=== PATIENT | male | born 1990 | race Caucasian/White ===

== ENCOUNTER 2022-11-17 09:58 | Inpatient (IN) | payer MEDICAID ==
[~2022-11-17] VITALS: Ht 175.3 cm; Wt 178.4 kg
[2022-11-17] VITALS (8 sets, daily range): BP systolic 82–212; BP diastolic 40–118
--- NOTE | 2022-11-17 10:00 | NUR ---
BIBA TO BED 7
[2022-11-17] MEDS ORDERED: methylPREDNISolone SS 125 MG/2 ML VIAL IVP ONE (10:05)
[2022-11-17] MEDS ORDERED: NACL 0.9% 1,000 ML IV ONE (10:05)
[2022-11-17] MEDS ORDERED: ALBUTEROL SULFATE/IPRATROPIU 3 ML SOL IH ONE (10:05)
--- NOTE | 2022-11-17 10:13 | NUR ---
[facility]
[2022-11-17] MEDS ORDERED: AZITHROMYCIN 500 MG in DEXTROSE 5% 250 ML IV ONE (10:25)
--- NOTE | 2022-11-17 10:30 | NUR ---
32YO MALE PT BIBA HOME C/O INCREASED SOB XTODAY. PER [facility] , PT 92% RA ON SCENE. PT STATES INITIAL ONSET OF SOB, CONGESTION, RUNNY NOSE AND COUGH X3DAYS. C/O CHEST PAIN AND EPIGSTRIC PAIN ON COUGH. MOIST PRODUCTIVE COUGH PRESENT. RALE SOUNDS ANTIONETTE NOTED. DENIES TAKING MEDICATION N/V/D, FEVER OR CHILLS. +RECENT CONTACT WITH SICK NEPHEW. ON 10L VIA NON BREATHER. 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 HOB RAISED HX:DENIES NKA
--- NOTE | 2022-11-17 10:35 | NUR ---
RT AT BEDSIDE
[2022-11-17] MEDS ORDERED: AZITHROMYCIN 500 MG INJ VIAL IV ONE (10:39)
[2022-11-17] MEDS ORDERED: cefTRIAXone 1,000 MG VIAL ONE (10:39)
[2022-11-17 10:47] LABS: BASOPHILS % (AUTO) 0.4 % (0.0-2.0); EOSINOPHILS % (AUTO) 0.2 % (0.0-4.0); HEMATOCRIT 44.3 % (36-52); HEMOGLOBIN 14.7 g/dL (12.0-18.0); LYMPHOCYTES # (AUTO) 1.8 K/uL (2.0-11.5); LYMPHOCYTES % (AUTO) 14.5 % (20.5-51.1); MEAN CORPUSCULAR HEMOGLOBIN 27 pg (27-31); MEAN CORPUSCULAR HGB CONC 33 g/dL (33-37); MEAN CORPUSCULAR VOLUME 82.6 fL (80-94); MONOCYTES # (AUTO) 1.4 K/uL (0.8-1.0); MONOCYTES % (AUTO) 11.1 % (1.7-9.3); NEUTROPHILS # (AUTO) 9.2 K/uL (1.8-7.7); NEUTROPHILS % (AUTO) 73.8 % (42.2-75.2); PLATELET COUNT (AUTO) 252 K/uL (140-450); RED BLOOD CELL COUNT(AUTO) 5.36 MIL/uL (4.20-6.10); RED CELL DISTRIBUTION WIDTH 14.6 % (11.6-13.7); WHITE BLOOD COUNT (AUTO) 12.5 K/uL (4.8-10.8)
[2022-11-17 11:27] LABS: ALBUMIN 2.8 g/dL (3.4-5.0); ANION GAP 11.7 (8-16); CARBON DIOXIDE 28.5 mmol/L (21-32); CREATININE 0.6 mg/dL (0.6-1.3); POTASSIUM 4.2 mmol/L (3.5-5.1); TOTAL BILIRUBIN 0.5 mg/dL (0.0-1.0)
--- NOTE | 2022-11-17 11:29 | NUR ---
PT REFUSING TO KEEP NON REBREATHER ON "TRIGGERS MY PTSD". MADE AWARE
[2022-11-17] MEDS ORDERED: ALUMINUM HYD/MAG/SIMETHICONE 30 ML UDC PO ONE (11:30)
[2022-11-17] MEDS ORDERED: LORazepam 2 MG/ML VIAL IVP ONE (11:30)
--- NOTE | 2022-11-17 11:48 | NUR ---
WENT IN TO MEDICATE PT WITH ATIVAN D/T PTSD. PTS SPO2 AT 82-85%. PT TOOK OFF NONREBREATHERED. OFFERED PT TO APPLY NASAL CANNULA IF THE NONREBREATHER WAS TOO MUCH. PT REFUSED STATING HIS PTSD IS CAUSING HIS OXYGEN TO DROP. EDUCATED PT ON THE IMPRTANCE OF OXYGEN, PT STATED "I DONT NEED OXYGEN". ATTEMPTED TO ELEVATE HEAD OF BED, PT REFUSING. DR DARRIUS MCKINNON.
--- NOTE | 2022-11-17 11:53 | NUR ---
SPO2 DROPPED TO 72%. DR RIZO AWARE AND IS AT BEDSIDE.
--- NOTE | 2022-11-17 11:55 | NUR ---
PT PLACED ON 6L N/C PER DR RIZO. RT PAGED FOR ASSISTANCE
--- NOTE | 2022-11-17 12:06 | NUR ---
RN CALLED PT DESATING AND REFUSING TO KEEP NRM ON. RT ASSESSED PT HE IS HR 121 SPO2 87% ON 4L NC . RT PLACED PT ON GREEN HIGH FLOW BUBBLER ON 10L. PT IS SATING 95%. PT IS PRONED AND STABLE. WILL CONTINUE TO MONITOR.
[2022-11-17] MEDS ORDERED: VANCOMYCIN PER PHARMACY MC PRN (13:20)
[2022-11-17] MEDS: NACL 0.9% 1,000 ML IV SCH ×2 (13:54→23:40)
--- NOTE | 2022-11-17 15:08 | NUR ---
SPO2 RANGING FROM 89%-92%, RR IN THE 30S-40S. CRITICAL CARE DR CARRILLO CONTACTED AND INFORMED OF PTS. STATED TO INTUBATE THE PT. DR LONG, ER DOC AT BEDSIDE.
--- NOTE | 2022-11-17 15:14 | NUR ---
PT REFUSED INTUBATION WITH DR LONG.
--- NOTE | 2022-11-17 15:23 | NUR ---
DR REDMOND CONTACTED AND SPOKE WITH PT DIRECTLY.
--- NOTE | 2022-11-17 15:30 | NUR ---
ATTEMPTED TO CONTACT PTS COUSIN ALEAH SEVERAL TIMES, NO ANSWER. LEFT MESSAGE. DR REDMOND AWARE
[2022-11-17] MEDS: VANCOMYCIN 2,000 MG in DEXTROSE 5% 500 ML IV SCH ×2 (15:33→23:39)
--- NOTE | 2022-11-17 15:40 | NUR ---
RN CALLED RT PT IS REFUSING BIPAP AND INTUBATION. RT WENT TO BEDSIDE TALKED TO PT AND EXPRESS DRS. FEEL THE BEST CARE FOR PT WOULD BE INTUBATION DUE TO HIS RESP DISTRESS INCREASING. PT AGREED TO INTUBATION. DR ATWOOD AND RN AWARE OF PT AGREEING.
[2022-11-17] MEDS ORDERED: INTUBATION KIT MC ONE ×2 (15:41→16:13)
--- NOTE | 2022-11-17 15:42 | NUR ---
PT MOVED TO ER BED 4
--- NOTE | 2022-11-17 15:45 | NUR ---
ASSUMED CARE OF PATIENT AT THIS TIME. PATIENT TACHYPNEIC AT 37, O2 SATURATION IN THE 80S. PATIENT AGREEING TO INTUBATION, DR. LONG BEDSIDE. PREPARING FOR INTUBATION.
[2022-11-17] MEDS ORDERED: PROPOFOL 1000 MG/100 ML PREMIX 100 ML IV ONE ×2 (15:48→15:50)
[2022-11-17] MEDS ORDERED: SUCCINYLCHOLINE CHLORIDE 200 MG/10 ML VIAL IVP ONE ×2 (15:50→16:00)
[2022-11-17] MEDS ORDERED: ETOMIDATE 20 MG/10 ML VIAL IVP ONE (16:00)
--- NOTE | 2022-11-17 16:00 | NUR ---
ANTIONE MOCTEZUMA RT, AND PRIMARY NURSE AT BEDSIDE FOR INTUBATION
[2022-11-17] MEDS ORDERED: LORazepam 2 MG/ML VIAL ONE (16:42)
[2022-11-17] MEDS ORDERED: ONDANSETRON 4 MG/2 ML VIAL ONE (16:43)
--- NOTE | 2022-11-17 17:47 | NUR ---
PT MOVED TO ICU 7. PT SAT IS 85 AND HE IS COMPLETELY SEDATED.
--- NOTE | 2022-11-17 17:48 | NUR ---
[place] [id number]
--- NOTE | 2022-11-17 17:48 | NUR ---
Patient will be admitted to [facility]. Admited to ICU. Will go to room 7. Belongings list completed. Report to ALEXANDRA PHAM.
[2022-11-17] MEDS ORDERED: fentaNYL citrate 0.05 MG/ML VIAL ONE ×4 (17:49→22:35)
--- NOTE | 2022-11-17 17:50 | NUR ---
RECEIVED PT FROM ER IN BED , ETT TO VENT ACPC 100% FIO2, PRES 24 RATE 14 PEEP 18 CENTRAL LINR RT IJ INFUSSING PROPOFOL AT MCG/KG/MIN AT THE TIME PT PLACE IN ICU BED 7 MAKE COMFORTABLE.
[2022-11-17] MEDS: PIPERACILLIN/TAZOBACTAM 3.375 GM in DEXTROSE 5% 50 ML IV SCH (18:00)
[2022-11-17] MEDS ORDERED: fentaNYL citrate 1 MG in NACL 0.9% 80 ML IV PRN (18:05)
[2022-11-17] MEDS ORDERED: PROPOFOL 1000 MG/100 ML PREMIX 100 ML IV PRN ×2 (18:05→18:20)
[2022-11-17] MEDS ORDERED: NOREPINEPHRINE 4 MG/4 ML VIAL IV ONE ×4 (18:06→18:07)
[2022-11-17] MEDS ORDERED: NOREPINEPHRINE 4 MG in DEXTROSE 5% 250 ML IV PRN (18:10)
--- NOTE | 2022-11-17 18:12 | NUR ---
Spoke to Dr. Maier regarding pt low BP. New orders for fentanyl, propofol, versed, levo, and manoj-synephrine drip.
[2022-11-17] MEDS ORDERED: MIDAZOLAM MDV 50 MG in NACL 0.9% 40 ML IV PRN (18:15)
[2022-11-17] MEDS ORDERED: LORazepam 2 MG/ML VIAL IVP SCH (18:15)
[2022-11-17] MEDS ORDERED: ATROPINE 1 MG/10 ML SYR IVP ONE (18:15)
[2022-11-17] MEDS ORDERED: ONDANSETRON 4 MG/2 ML VIAL IVP ONE (18:15)
[2022-11-17] MEDS ORDERED: PHENYLEPHRINE 10 MG in NACL 0.9% 250 ML IV PRN (18:25)
--- NOTE | 2022-11-17 18:38 | NUR ---
INTUBATION 1601--PER DR. LONG VERBAL ORDER FOR 20MG EMTOMIDATE GIVEN IVP 1601--PER DR. LONG VERBAL ORDER 100MG SUCCINYLCHOLINE GIVEN IVP 1602--DR. LONG ATTEMPTING INTUBATION, UNSUCCESSFUL, RT BEDSIDE BAGGING PATIENT 1603--PATIENT PLACED ON DEFIB PADS AND CRASH CART AT BEDSIDE 1607--PER DR. LONG VERBAL ORDER FOR 20MG ETOMIDATE GIVEN IVP. 1608--PATIENT HEART RATE 33, VERBAL ORDER PER DR. LONG FOR ATROPINE 1MG GIVEN IVP 1609--RT BAGGING PATIENT AT BEDSIDE 1615--PER DR. LONG VERBAL ORDER FOR 20MG ETOMIDATE GIVEN IVP. 1616--PER DR. LONG VERBAL ORDER 100MG SUCCINYLCHOLINE GIVEN IVP 1618--SECOND UNSUCCESSFUL INTUBATION ATTEMPT, RT BEDSIDE BAGGING PATIENT 1621--HR 144 O2 59% BAGGING PATIENT, RR 54 1624--PER DR. LONG VERBAL ORDER FOR 20MG ETOMIDATE GIVEN IVP. 1626--PER DR. LONG VERBAL ORDER 100MG SUCCINYLCHOLINE GIVEN IVP 1628--THIRD UNSUCCESSFUL INTUBATION ATTEMPT BY DR. LONG, RT BEDSIDE BAGGING PATIENT, O2 52%, HR 136, RR 21 1634--PER DR. LONG VERBAL ORDER FOR 20MG ETOMIDATE GIVEN IVP. 1635--DR. CARRILLO NOTIFIED OF PATIENT CONDITION, STATED HE WILL BE BEDSIDE IN 5 MIN 1637--FOURTH UNSUCCESSFUL INTUBATION ATTEMPT BY DR. LONG, RT BEDSIDE BAGGING PATIENT. O2 85%, HR 142, RR 23 1642--VERBAL ORDER BY DR. LONG, 1MG ATIVAN GIVEN IVP 1643--VERBAL ORDER BY DR. LONG, 4MG ZOFRAN GIVEN IVP 1644--DR. CARRILLO BEDSIDE 1648--VERBAL ORDER BY DR. CARRILLO 10MG ETOMIDATE GIVEN 1648--VERBAL ORDER BY DR. CARRILLO 50MG ROCURONIUM GIVEN 1650--UNSUCCESSFUL INTUBATION ATTEMPT BY DR. CARRILLO, RT BEDSIDE BAGGING PATIENT. O2 28%, HR 143, RR 22 1658--DR. CARRILLO ATTEMPTING INTUBATION WITH USE OF BRONCHOSCOPE, UNSUCCESSFUL. RT BAGGING PATIENT 1659--ANESTHESIOLOGIST DR. ZUNIGA AT BEDSIDE 1708--DR. ZUNIGA SUCCESSFULY INTUBATED PATIENT, +COLOR CHANGE. 7.0 ETT USED, 23 AT THE TEETH. 1711--16FR OG TUBE INSERTED +AUSCULTATION 171--BP 203/103, HR 138, 95% O2 ON VENT, RR 29 1716--X RAY BEDSIDE FOR VERIFICATION OF ETT AND OG TUBE. 172--O2 DROPPED 73% ON VENT, DR. CARRILLO AT BEDSIDE, RT BEDSIDE BAGGING PATIENT, INCREASED O2 TO 88%, HE 144, RR 33 1730--DR. CARRILLO BEDSIDE FOR CENTRAL LINE INSERTION 1730--PATIENT WAKING UP, PROPOFOL INCREASED TO 50MCG/KG/MIN, PER DR. CARRILLO, VERIFIED BY SECOND RN. BP 212/110, HR 141, RR 18, 87% O2 ON VENT 174--X RAY BEDSIDE FOR VERIFICATION OF CENTRAL LINE 1739-- VERBAL ORDER BY DR. CARRILLO AT BEDSIDE FOR FENTANYL 100MCG/HR TO BE STARTED AND TO CONTINUE PROPOFOL AT 50 MCG/KG/MIN 1742--PATIENTS O2 AT 85% ON VENT AT MAX SETTINGS, PRESSURE CONTROL AT 24, 100%, PEEP 18 AND RATE OF 14. DR. CARRILLO CALLED AND MADE AWARE, STATED PATIENT OKAY FOR OXYGEN SATURATION OF 85%. Addendum: 11/17/22 at 1923 by SALVATORE 1720--PROPOFOL STARTED 5 MCG/KG/MIN PER DR. LONG, VERIFIED BY SECOND RN
--- NOTE | 2022-11-17 19:00 | NUR ---
OVERRIDE LEVOPHED 4MG/4ML, 2 DOSES DUE TO EMERGENCY NEED FOR PT STATUS. Addendum: 11/17/22 at 2000 by Leon Nettles RN ONLY ONE VIAL USED. SECOND VIAL CAP WAS REMOVED, BUT NOT USED. GIVEN TO BETO, AND WILL RETURN TO PHARMACY.
--- NOTE | 2022-11-17 19:10 | NUR ---
TRANSFER OF CARE FROM DAY SHIFT, REPORT RECEIVED FROM ANKIT
[2022-11-17] MEDS: ETOMIDATE 20 MG/10 ML VIAL IVP ONE ×2 (19:17→19:18)
[2022-11-17] MEDS ORDERED: ACETAMINOPHEN 650 MG SUPP RC PRN (19:35)
[2022-11-17] MEDS ORDERED: ALBUTEROL SULFATE/IPRATROPIU 3 ML SOL IH PRN (20:05)
[2022-11-17] MEDS: ACETAMINOPHEN 650 MG/20.3 ML UDC PO PRN (20:58)
[2022-11-17] MEDS: ALBUTEROL SULFATE/IPRATROPIU 3 ML SOL IH SCH ×2 (21:07→23:11)
[2022-11-17] MEDS: PROPOFOL 1000 MG/100 ML PREMIX 100 ML IV PRN (21:32)
[2022-11-17] MEDS ORDERED: PHENYLEPHRINE 40 MG in NACL 0.9% 250 ML IV PRN (22:30)
[2022-11-17] MEDS ORDERED: PHENYLEPHRINE 10 MG/ML VIAL ONE (22:30)
[2022-11-18] VITALS (29 sets, daily range): BP systolic 80–127; BP diastolic 35–95
[2022-11-18] MEDS ORDERED: PIPERACILLIN/TAZOBACTAM 3.375 GM VIAL IV ONE ×2 (00:18→05:33)
[2022-11-18] MEDS: PIPERACILLIN/TAZOBACTAM 3.375 GM in DEXTROSE 5% 50 ML IV SCH ×4 (00:47→17:52)
[2022-11-18] MEDS ORDERED: NOREPINEPHRINE 4 MG/4 ML VIAL IV ONE ×2 (01:18→06:06)
[2022-11-18] MEDS: ALBUTEROL SULFATE/IPRATROPIU 3 ML SOL IH SCH ×12 (01:22→23:00)
[2022-11-18] MEDS: NOREPINEPHRINE 4 MG in DEXTROSE 5% 250 ML IV PRN ×3 (01:27→09:49)
[2022-11-18] MEDS: PROPOFOL 1000 MG/100 ML PREMIX 100 ML IV PRN ×11 (01:32→22:59)
[2022-11-18] MEDS ORDERED: fentaNYL citrate 0.05 MG/ML VIAL ONE ×4 (02:30→02:53)
[2022-11-18] MEDS: fentaNYL citrate - 50mL vial 2.5 MG in NACL 0.9% 200 ML IV PRN ×3 (03:25→19:18)
[2022-11-18] MEDS: ACETAMINOPHEN 650 MG/20.3 ML UDC PO PRN ×2 (04:59→11:26)
[2022-11-18] MEDS ORDERED: VANCOMYCIN 1,000 MG VIAL ONE (05:33)
[2022-11-18] MEDS: VANCOMYCIN 2,000 MG in DEXTROSE 5% 500 ML IV SCH (06:21)
[2022-11-18 06:41] LABS: ANION GAP 16.2 (8-16); CREATININE 3.5 mg/dL (0.6-1.3); POTASSIUM 5.2 mmol/L (3.5-5.1)
[2022-11-18] MEDS: BUDESONIDE 0.5 MG/2 ML NEBU INH SCH ×2 (07:09→19:21)
--- NOTE | 2022-11-18 07:10 | NUR ---
RECEIVED PT ON PC 20, RR24,+18, 100%. VENT WHEELS ARE LOCKED, PLUGGED INTO RED OUTLET, AMBUBAG AT BEDSIDE, ALARMS ARE SET AND AUDIBLE. ABG TO FOLLOW. WILL CONTINUE TO MONITOR.
--- NOTE | 2022-11-18 07:20 | NUR ---
RECEIVED BEDSIDE REPORT FROM RAYA EMISSIONS TESTING TECHNICIAN RN, FOR CONTINUITY OF CARE. PT A/OX0. ETT TO VENT AC/PC FIO2 100%, RR 24, PEEP 18. NSR ON MONITOR. TRIPLE LUMEN CENTRAL LINE TO R IJ INFUSING LEVOPHED AT 20 MCG/MIN, FENTANYL AT 3 MCG/KG/HR, AND PROPOFOL AT 60 MCG/KG/MIN. 20G IV TO R WRIST INFUSING VANCOMYCIN AT 250 ML/HR. NGT TO L NARE, CLAMPED. F/C TO GRAVITY. GENERALIZED WEAKNESS. STANDARD PRECAUTION. BED IN SEMI-JONES'S POSITION, LOCKED, AND IN LOWEST POSITION.
--- NOTE | 2022-11-18 07:27 | NUR ---
TRANSFER OF PATIENT TO DAY SHIFT, ENDORSED TO YAMILETH
[2022-11-18 07:41] LABS: HEMATOCRIT 42.9 % (36-52); HEMOGLOBIN 13.4 g/dL (12.0-18.0); MEAN CORPUSCULAR HEMOGLOBIN 27 pg (27-31); MEAN CORPUSCULAR HGB CONC 31 g/dL (33-37); MEAN CORPUSCULAR VOLUME 86.5 fL (80-94); PLATELET COUNT (AUTO) 278 K/uL (140-450); RED BLOOD CELL COUNT(AUTO) 4.96 MIL/uL (4.20-6.10); RED CELL DISTRIBUTION WIDTH 16.1 % (11.6-13.7)
[2022-11-18] MEDS ORDERED: SODIUM ZIRCONIUM CYCLOSILICATE 10 GM POWD.PACK PO SCH (08:00)
[2022-11-18] MEDS: ENOXAPARIN 40 MG/0.4 ML SYR SUBQ SCH (08:04)
--- NOTE | 2022-11-18 08:30 | NUR ---
TEMP 100.3, PRN TYLENOL NOT YET DUE. PLACED ICE PACKS TO AXILLA.
[2022-11-18 08:33] LABS: WHITE BLOOD COUNT (AUTO) 25.1 K/uL (4.8-10.8)
[2022-11-18 08:34] LABS: LYMPHOCYTES % (MANUAL) 10 % (20-46); MONOCYTES % (MANUAL) 10 % (5-12)
--- NOTE | 2022-11-18 09:00 | NUR ---
PAGED DR. WALLS TO NOTIFY OF LATEST ABG RESULT. ORDERS TO INCREASE RR FROM 24 TO 28. RT MADE AWARE AND ADJUSTED VENT SETTINGS.
[2022-11-18] MEDS: NACL 0.9% 1,000 ML IV SCH ×2 (09:20→19:20)
--- NOTE | 2022-11-18 10:29 | NUR ---
PATIENT HAS BEEN SCREENED AND CATEGORIZED HIGH NUTRITION RISK. PATIENT WILL BE SEEN WITHIN 1-2 DAYS OF ADMISSION. 11/18/2212/20/[address]UEL ZUN[address]A [address]
--- NOTE | 2022-11-18 11:31 | NUR ---
DC PLANNING ATTEMPTED TO REACH PTS EMERGENCY CONTACT, ALEAH KNOWLES, HOWEVER, UNSUCCESSFUL. PER NOTES NURSES HAVE ALSO ATTEMPTED TO REACH PTS FAMILY TO NO AVAIL. AURELIA OUTREACHED TO [place] [employer], NON EMERGENCY LINE [phone] AND SPOKE WITH AURELIA CA REQUESTED FOR WELLNESS CHECK TO MAKE CONTACT WITH PTS FAMILY. PROVIDED PD WITH CALL BACK INFO. PD TO BE DISPATCHED TO HOME. Addendum: 11/19/22 at 1042 by Jim GONZALES OUTREACHED TO PTS EMERGENCY CONTACT, ALEAH KNOWLES, , HOWEVER, NO ANSWER. MESSAGE WAS LEFT REQUESTING A RETURN PHONE CALL. Addendum: 11/20/22 at 0930 by Jim GONZALES ATTEMPTED TO CALL PTS EMERGENCY CONTACT, ALEAH KNOWLES, , HOWEVER, UNSUCCESSFUL. UNABLE TO LEAVE MESSAGE [employer] BOX IS FULL. Addendum: 11/20/22 at 1632 by Jim GONZALES 2ND ATTEMPT MADE 11/20 TO CALL PTS EMERGENCY CONTACT, ALEAH KNOWLES, , HOWEVER, UNSUCCESSFUL. UNABLE TO LEAVE MESSAGE BOX IS FULL.
--- NOTE | 2022-11-18 11:34 | NUR ---
ADMINISTERED PRN TYLENOL FOR 100.3 FEVER.
[2022-11-18] MEDS: NOREPINEPHRINE 16 MG in DEXTROSE 5% 250 ML IV PRN (13:01)
--- NOTE | 2022-11-18 13:30 | NUR ---
TEMP 100.4, REPLACED ICE PACKS TO AXILLA.
--- NOTE | 2022-11-18 16:46 | NUR ---
11/18/22 RD INITIAL ASSESSMENT COMPLETED PLEASE REFER TO NUTRITION ASSESSMENT UNDER CARE ACTIVITY FOR ESTIMATED NUTRITIONAL NEEDS. 1. MONITOR NPO STATUS 2. WHEN/IF MEDICALLY APPROPRIATE TO START TF, RECOMMEND VITAL AF 1.2 WITH A GOAL RATE OF 75ML/HR -FWF: 150ML Q6H OR PER MD -START AT 20ML/HR AND INCREASE BY 20ML Q4H TOLERATED UNTIL THE GOAL IS REACHED -WILL PROVIDE 1800ML TOTAL VOLUME, 2160KCAL, 135GM PROTEIN, AND 2060ML FREE WATER, MEETING 90% OF ESTIMATED KCAL AND 94% ESTIMATED PROTEIN NEEDS; ADEQUATE 3. MONITOR GASTRIC RESIDUALS 3. RD TO FOLLOW-UP 3-5 DAYS, MODERATE RISK REVIEWED BY MANUEL ZUNIGA RD
--- NOTE | 2022-11-18 19:10 | NUR ---
ENDORSED BEDSIDE REPORT TO JOSE SENIOR IT SPECIALIST RN, FOR CONTINUITY OF CARE.
--- NOTE | 2022-11-18 19:15 | NUR ---
RECEIVED PT. FROM DAY SHIFT, ALEXANDRA BOWDEN. PT. ON ETT TO VENT A/C PC RATE 28, FIO2 85%, PEEP 5. BILATERAL LUNGS SOUNDS DIMINISHED. BOTH EYES NON REACTIVE TO LIGHT. ON SINUS RHYTHM. IV TO RIGHT JUGULAR CENTRAL LINE TRIPLE LUMEN INFUSING LEVOPHED DRIP 12 MCG/MIN, FENTANYL 1.2 MCG/KG/HR AND PROPOFOL DRIP 40 MCG/KG MIN. IV TO RIGHT HAND 20G RUNNING NS AT 100 ML/HR. IV SITE PATENT AND INTACT. NO S/S OF INFILTRATION. PT. HAS LEFT NGT, NPO ORDERED. SKIN INTACT. WITH BILATERAL SOFT WRIST RESTRAINT PER MD ORDERED. SITE NO S/S OF POOR CIRCULATION AND NO S/S OF INJURY. PLACED PT. IN COMFORTABLE POSITION. PROVIDED SAFE AND QUIET ENVIRONMENT. NO S/S OF DISTRESS. NO S/S OF PAIN. WILL CONT. TO MONITOR.
--- NOTE | 2022-11-18 20:38 | NUR ---
PT. UNDERGONE KIDNEY U/S, DONE AT THE BEDSIDE. WILL ENDORSE TO THE NEXT SHIFT.
[2022-11-18] MEDS ORDERED: DOXYCYCLINE 100 MG VIAL IV ONE (20:55)
[2022-11-18] MEDS: DOXYCYCLINE 100 MG in DEXTROSE 5% 100 ML IV SCH (21:00)
--- NOTE | 2022-11-18 21:17 | NUR ---
TEXTED DR. STAFFORD, PT. K LEVEL 5.2. WILL WAIT FOR RESPONSE.
--- NOTE | 2022-11-18 21:58 | NUR ---
DR. STAFFORD RESPONDED TO MONITOR.
[2022-11-19] VITALS (28 sets, daily range): BP systolic 110–147; BP diastolic 53–98
[2022-11-19] MEDS: PIPERACILLIN/TAZOBACTAM 3.375 GM in DEXTROSE 5% 50 ML IV SCH ×3 (00:06→11:08)
[2022-11-19] MEDS: ALBUTEROL SULFATE/IPRATROPIU 3 ML SOL IH SCH ×9 (01:00→19:18)
[2022-11-19] MEDS: PROPOFOL 1000 MG/100 ML PREMIX 100 ML IV PRN ×9 (01:37→23:34)
[2022-11-19] MEDS: NACL 0.9% 1,000 ML IV SCH ×2 (05:00→17:25)
[2022-11-19 06:20] LABS: CARBON DIOXIDE 24.2 mmol/L (21-32); POTASSIUM 5.2 mmol/L (3.5-5.1)
[2022-11-19 06:34] LABS: CREATININE 6.5 mg/dL (0.6-1.3)
[2022-11-19] MEDS: BUDESONIDE 0.5 MG/2 ML NEBU INH SCH ×2 (06:59→19:18)
--- NOTE | 2022-11-19 07:10 | NUR ---
ENDORSED TO ALEXANDRA ROBERTS PT. CREATININE 6.5. TEXTED DR. STAFFORD THAT PT. CREATININE 6.5.
--- NOTE | 2022-11-19 07:11 | NUR ---
REPORT GIVEN TO QUINCY ROBERTS RN FOR CONTINUITY OF CARE.
--- NOTE | 2022-11-19 08:14 | NUR ---
Dr. Anderson notified regarding BUN, creatinine, and potassium level and urine output. New order received.
[2022-11-19] MEDS: fentaNYL citrate - 50mL vial 2.5 MG in NACL 0.9% 200 ML IV PRN ×2 (08:35→21:22)
[2022-11-19] MEDS: PANTOPRAZOLE 40 MG INJ VIAL IVP SCH (08:46)
[2022-11-19] MEDS: DOXYCYCLINE 100 MG in DEXTROSE 5% 100 ML IV SCH ×2 (08:47→21:24)
--- NOTE | 2022-11-19 09:20 | NUR ---
Seen and examined by Dr. Patino. No new orders.
[2022-11-19 09:41] LABS: BASOPHILS # (AUTO) 0.1 K/uL (0.00-0.22); BASOPHILS % (AUTO) 0.3 % (0.0-2.0); HEMATOCRIT 38.8 % (36-52); HEMOGLOBIN 12.5 g/dL (12.0-18.0); LYMPHOCYTES # (AUTO) 1.9 K/uL (2.0-11.5); LYMPHOCYTES % (AUTO) 11.1 % (20.5-51.1); MEAN CORPUSCULAR HEMOGLOBIN 27 pg (27-31); MEAN CORPUSCULAR HGB CONC 32 g/dL (33-37); MONOCYTES % (AUTO) 22.9 % (1.7-9.3); NEUTROPHILS # (AUTO) 11.4 K/uL (1.8-7.7); NEUTROPHILS % (AUTO) 65.7 % (42.2-75.2); PLATELET COUNT (AUTO) 215 K/uL (140-450); RED BLOOD CELL COUNT(AUTO) 4.62 MIL/uL (4.20-6.10); RED CELL DISTRIBUTION WIDTH 15.4 % (11.6-13.7); WHITE BLOOD COUNT (AUTO) 17.4 K/uL (4.8-10.8)
[2022-11-19] MEDS: ACETAMINOPHEN 325 MG TAB PO PRN ×2 (10:01→21:27)
[2022-11-19] MEDS: ENOXAPARIN 40 MG/0.4 ML SYR SUBQ SCH (10:02)
--- NOTE | 2022-11-19 13:20 | NUR ---
Dr. Anderson at bedside examining pt. Third attempt to call family on facesheet. However, no answer and call back.
--- NOTE | 2022-11-19 15:16 | NUR ---
PEEP TITRATED TO 26igB5L PER , WILL CONTINUE TO MONITOR.
--- NOTE | 2022-11-19 15:27 | NUR ---
Seen and examined by Dr. Tabor.
--- NOTE | 2022-11-19 16:36 | NUR ---
Spoke to Dr. Tabor regarding dialysis catheter placement. She will be available to do at bedside tomorrow morning. New orders received.
--- NOTE | 2022-11-19 16:37 | NUR ---
Spoke to Dr. Anderson and gave updates. New order received.
[2022-11-19] MEDS ORDERED: INSULIN REGULAR, HUMAN 100 UNIT/ML VIAL IVP SCH (16:59)
[2022-11-19] MEDS ORDERED: DEXTROSE 50% 50 ML SYR IVP SCH (16:59)
[2022-11-19 17:15] LABS: ANION GAP 22.8 (8-16); CARBON DIOXIDE 21.5 mmol/L (21-32); POTASSIUM 5.3 mmol/L (3.5-5.1)
[2022-11-19 17:19] LABS: CREATININE 8.5 mg/dL (0.6-1.3)
[2022-11-19] MEDS: SODIUM ZIRCONIUM CYCLOSILICATE 10 GM POWD.PACK PO SCH (17:29)
--- NOTE | 2022-11-19 18:06 | NUR ---
Reported lab levels at 16:[address] Anderson. No new orders.
--- NOTE | 2022-11-19 18:07 | NUR ---
Notified Bienvenido Mace regarding low grade fever and WBC. No new orders.
[2022-11-19] MEDS: PIPERACILLIN/TAZOBACTAM 2.25 GM in DEXTROSE 5% 50 ML IV SCH ×2 (18:13→23:09)
--- NOTE | 2022-11-19 19:18 | NUR ---
RECEIVED PT INTUBATED WITH 7.0mm ETT 23 cm @ THE TEETH. SETTINGS PC 20, R28, PEEP +15, FIO2 65%. NO SIGNS OF DISTRESS NOTED AT THIS TIME PT IS SATING 91%. ANTERIOR AUSCULTATION REVEALED VESICULAR BS CLEAR DIMINISHED BASES, SXN FOR SM WHITE CLEAR THICK SECRETIONS. ETT REPOSITIONED TO PREVENT SKIN BREAKDOWN, HOB ELEVATED, ORAL CARE DONE, BVM AT BEDSIDE, VENT PLUGGED INTO RED OUTLET, ALARMS ARE ON AND AUDIBLE. WILL CONTINUE TO MONITOR.
--- NOTE | 2022-11-19 19:39 | NUR ---
Endorsed to field interviewer nurse Kylee for continuity of care.
--- NOTE | 2022-11-19 20:00 | NUR ---
OPENING NOTE PT IS ON VENT WITH SETTINGS OF A/C PC RATE 28, FIO2 65%, PEEP 5. BILATERAL LUNGS SOUNDS DIMINISHED. BOTH EYES NON REACTIVE TO LIGHT. ON SINUS RHYTHM. IV TO RIGHT JUGULAR CENTRAL LINE TRIPLE LUMEN INFUSING FENTANYL 1.2 MCG/KG/HR AND PROPOFOL DRIP 40 MCG/KG MIN. IV TO RIGHT HAND 20G RUNNING NS AT 100 ML/HR. IV SITE PATENT AND INTACT. NO S/S OF INFILTRATION. PT. HAS LEFT NGT, NPO ORDERED. SKIN INTACT. WITH BILATERAL SOFT WRIST RESTRAINT PER MD ORDERED. SITE NO S/S OF POOR CIRCULATION AND NO S/S OF INJURY. PLACED PT. IN COMFORTABLE POSITION. PROVIDED SAFE AND QUIET ENVIRONMENT. WILL CONITNUE TO MONITOE FOR SAFETY
[2022-11-20] VITALS (31 sets, daily range): BP systolic 94–132; BP diastolic 47–69
[2022-11-20] MEDS: ALBUTEROL SULFATE/IPRATROPIU 3 ML SOL IH SCH ×4 (01:19→18:00)
[2022-11-20] MEDS: NACL 0.9% 1,000 ML IV SCH ×2 (01:20→11:18)
[2022-11-20] MEDS: PROPOFOL 1000 MG/100 ML PREMIX 100 ML IV PRN ×9 (02:00→22:20)
[2022-11-20 05:37] LABS: ANION GAP 25.8 (8-16); CARBON DIOXIDE 19.7 mmol/L (21-32); POTASSIUM 5.5 mmol/L (3.5-5.1)
[2022-11-20 05:39] LABS: CREATININE 9.6 mg/dL (0.6-1.3)
[2022-11-20] MEDS: PIPERACILLIN/TAZOBACTAM 2.25 GM in DEXTROSE 5% 50 ML IV SCH ×3 (05:43→17:00)
[2022-11-20] MEDS: BUDESONIDE 0.5 MG/2 ML NEBU INH SCH ×2 (07:08→19:30)
--- NOTE | 2022-11-20 07:48 | NUR ---
Received pt sedated. ETT to vent settings AC PC rate 28 PEEP 15 FiO2@65%. Sinus tachycardia on monitor. NG-tube on left nare clamped. Montes catheter intact and draining to BSD. Central line on right IJ intact and patent infusing Propofol@ 40mcg/kg/min and fentanyl @1mcg/kg/hr. Peripheral IV 20 gauge on right hand intact and patent infusing NS@100ml/hr. Bilat soft restraints in place with no signs of injury. Safety precautions in place.
--- NOTE | 2022-11-20 08:11 | NUR ---
Reported critical labs to Dr. Sheehan. Awaiting for orders and awaiting for dialysis catheter placement.
[2022-11-20] MEDS ORDERED: ROCURONIUM 50 MG/5 ML VIAL IV ONE (08:22)
--- NOTE | 2022-11-20 08:25 | NUR ---
Meds given as per MD order. Dr. Tabor at bedside placing dialysis Ralf catheter in right IJ. No signs of distress.
--- NOTE | 2022-11-20 09:00 | NUR ---
Seen and examined by Dr. Patino.
[2022-11-20] MEDS: PANTOPRAZOLE 40 MG INJ VIAL IVP SCH (09:16)
[2022-11-20] MEDS: DOXYCYCLINE 100 MG in DEXTROSE 5% 100 ML IV SCH ×2 (09:16→20:29)
--- NOTE | 2022-11-20 09:35 | NUR ---
Spoke with Dr. Anderson regarding catheter placement. Hemodialysis for today with Irasema.
--- NOTE | 2022-11-20 09:35 | NUR ---
PT. WITH LOW KAREN SCALE AT MODERATE TO HIGH RISK, CONTINUE TO FOLLOW PRESSURE INJURY PREVENTION INTERVENTIONS. -POSITIONING: TURN AND REPOSITION PATIENT Q 2H OR SOONER USE PILLOWS TO KEEP BONY PROMINENCES FROM DIRECT CONTACT WITH SURFACES USE REPOSITIONING WEDGES TO PROVIDE 30-DEGREE ANGLE FOR SIDE LYING POSITIONS OFFLOADING OR FOAM DRESSING TO ALL TUBING TO PREVENT MEDICAL DEVICES RELATED PRESSURE INJURY -RE-EVALUATING AND MANAGING INCONTINENCE MONITOR SKIN CONDITION DURING POSITION CHANGE DO NOT MASSAGE REDNESS, BONY PROMINENCES FREQUENT ION-CARE AND PROVIDE BARRIER CREAMS PRN IF SOILING MOISTURE CONTROL BY OFFER BED AYALA/URINAL /ABSORBENT PAD TO WICK AND HOLD MOISTURE KEEP SKIN DRY AND PROTECT FROM FRICTION -MANAGE FRICTION/SHEAR/MOBILITY KEEP HOB AT THE LOWEST LEVEL OF ELEVATION NO MORE THAN 30 DEGREE UNLESS OTHERWISE CONTRAINDICATED USE LIFT SHEET OR TRANSFER DEVICE TO MOVE PATIENT AND PREVENT LATERAL SHEER. PROTECT HEELS, ELBOWS BONY PROMINENCES WITH SKIN BERRIES OR FOAM DRESSING IF EXPOSED TO FRICTION OFFLOAD BILATERAL HEELS BY PLACING PILLOWS UNDER CALVES AT ALL TIMES, UNLESS OTHERWISE CONTRAINDICATED -PRESSURE REDISTRIBUTION SURFACE THERAPY ALEXEY ISOFLEX MATTRESS -NUTRITION: PLEASE FOLLOW RD RECOMMENDATIONS AND OFFER NUTRITION SUPPLEMENTS IF ORDERED. PLEASE CONTACT WOUND CARE NURSE FOR ANY QUESTION AND CHANGE OF WOUND CONDITION.
--- NOTE | 2022-11-20 09:57 | NUR ---
Reported CXR results to Dr. Tabor. Per rand Liang to use dialysis catheter.
--- NOTE | 2022-11-20 10:00 | NUR ---
[facility] made aware of hemodialysis today.
[2022-11-20 10:03] LABS: BASOPHILS # (AUTO) 0.1 K/uL (0.00-0.22); BASOPHILS % (AUTO) 0.4 % (0.0-2.0); EOSINOPHILS % (AUTO) 0.1 % (0.0-4.0); HEMATOCRIT 35.2 % (36-52); HEMOGLOBIN 11.2 g/dL (12.0-18.0); LYMPHOCYTES # (AUTO) 1.5 K/uL (2.0-11.5); LYMPHOCYTES % (AUTO) 10.5 % (20.5-51.1); MEAN CORPUSCULAR HEMOGLOBIN 27 pg (27-31); MEAN CORPUSCULAR HGB CONC 32 g/dL (33-37); MEAN CORPUSCULAR VOLUME 85.5 fL (80-94); MONOCYTES # (AUTO) 1.9 K/uL (0.8-1.0); MONOCYTES % (AUTO) 13.2 % (1.7-9.3); NEUTROPHILS # (AUTO) 10.8 K/uL (1.8-7.7); NEUTROPHILS % (AUTO) 75.8 % (42.2-75.2); PLATELET COUNT (AUTO) 223 K/uL (140-450); RED BLOOD CELL COUNT(AUTO) 4.11 MIL/uL (4.20-6.10); RED CELL DISTRIBUTION WIDTH 16.2 % (11.6-13.7); WHITE BLOOD COUNT (AUTO) 14.3 K/uL (4.8-10.8)
[2022-11-20] MEDS: SODIUM ZIRCONIUM CYCLOSILICATE 10 GM POWD.PACK PO SCH ×2 (10:14→12:35)
[2022-11-20] MEDS: ENOXAPARIN 40 MG/0.4 ML SYR SUBQ SCH (10:14)
--- NOTE | 2022-11-20 13:13 | NUR ---
Pt started on hemodialysis.
[2022-11-20] MEDS: fentaNYL citrate - 50mL vial 2.5 MG in NACL 0.9% 200 ML IV PRN (13:53)
--- NOTE | 2022-11-20 14:42 | NUR ---
Dr. Anderson at bedside examining patient. New order received.
[2022-11-20 15:00] LABS: HEPATITIS B SURFACE ANTIBODY REACTIVE (0.00 - 0.99)
--- NOTE | 2022-11-20 15:19 | NUR ---
Hemodialysis done. 1 L removed. VSS.
--- NOTE | 2022-11-20 19:17 | NUR ---
Endorsed to police shift commander nurse Kylee for continuity of care.
--- NOTE | 2022-11-20 20:00 | NUR ---
OPENING NOTE PT IS ON VENT WITH SETTINGS OF A/C PC RATE 28, FIO2 65%, PEEP 5. BILATERAL LUNGS SOUNDS DIMINISHED. BOTH EYES NON REACTIVE TO LIGHT. ON MONITOR AND SINUS TACHY PT HAS IV TO RIGHT JUGULAR CENTRAL LINE TRIPLE LUMEN INFUSING FENTANYL 1. MCG/KG/HR AND PROPOFOL DRIP 40 MCG/KG MIN. IV TO RIGHT HAND 20G RUNNING NS AT TKO. PT HAS NEWLY PLACED SWAPNA CATH FOR HD ONLY. PT HAS IV SITE PATENT AND INTACT. NO S/S OF INFILTRATION. PT. HAS LEFT NGT, WITH NEPHRO AR 10ML/HR WITH GOAL OF 40ML/HR. PT SKIN INTACT. WITH BILATERAL SOFT WRIST RESTRAINT PER MD ORDERED FOR PT SAFETY.
--- NOTE | 2022-11-20 20:52 | NUR ---
RECEIVED REPORT FROM AM SHIFT. PATIENT WAS SEEN AND ASSESSED. PATIENT IS INTUBATED WITH ETT SIZE 7.0 AND SECURED WITH A BITING BLOCK ANCHOR-FAST 23cm @ TEETH. PATIENT IS ON VENTILATOR SUPPORT. VENTILATOR PLUGGED IN RED OUTLET. VENTILATOR ALARMS SET APPROPRIATELY AND AUDIBLE TO ENVIRONMENT. AMBU BAG AT BEDSIDE. HEAD OF BED GREATER THAN 30 DEGREES. NOTICED ADEQUATE BILATERAL CHEST RISE AND FALL. PATIENT IS IN NO RESPIRATORY DISTRESS AT THIS TIME. VENT SETTINGS: AC/PC PRESSURE SET 20, RR 28, PEEP 15, FiO2 65% WITH SPO2 OF 93%. BILATERAL BREATH SOUNDS ON AUSCULTATION; UPPER LOBES: DIMINISHED LOWER LOBES: CRACKLES. SUCTION: SMALL AMOUNT OF WHITE THICK SECRETIONS FROM ETT AND SMALL WHITE THIN ORALLY. SCHEDULE TX GIVEN ORDERED AND PT TOLERATED WELL WITH NO ADVERSE REACTION WILL CONTINUE TO MONITOR PATIENT.
--- NOTE | 2022-11-20 22:00 | NUR ---
TUBE FEEDING NEPHRO INCREASED TI 20ML/HR AND PT IS TOLERATING WELL
[2022-11-21] VITALS (31 sets, daily range): BP systolic 94–165; BP diastolic 33–79
--- NOTE | 2022-11-21 | NUR ---
COOLING BLANKET APPLIED FOR COOLING MEASURES.
[2022-11-21] MEDS: ALBUTEROL SULFATE/IPRATROPIU 3 ML SOL IH SCH ×5 (00:24→23:25)
[2022-11-21] MEDS: PIPERACILLIN/TAZOBACTAM 2.25 GM in DEXTROSE 5% 50 ML IV SCH ×5 (00:38→23:26)
[2022-11-21] MEDS: PROPOFOL 1000 MG/100 ML PREMIX 100 ML IV PRN ×9 (00:41→21:22)
[2022-11-21] MEDS: ACETAMINOPHEN 325 MG TAB PO PRN ×2 (00:59→20:30)
--- NOTE | 2022-11-21 02:00 | NUR ---
TUBE FEEDING NEPHRO INCREASED TO 30ML/HR AND PT IS TOLERATING WELL
[2022-11-21] MEDS ORDERED: RACEPINEPHRINE 2.25% 13.5 MG/0.5 ML NEBU INH PRN (04:50)
[2022-11-21] MEDS: fentaNYL citrate - 50mL vial 2.5 MG in NACL 0.9% 200 ML IV PRN ×2 (05:35→17:18)
--- NOTE | 2022-11-21 06:00 | NUR ---
TUBE FEEDING NEPHRO INCREASED TO 40ML/HR AND PT IS TOLERATING WELL
[2022-11-21 06:30] LABS: ANION GAP 24.5 (8-16); CARBON DIOXIDE 18.4 mmol/L (21-32); POTASSIUM 4.9 mmol/L (3.5-5.1)
[2022-11-21 06:45] LABS: CREATININE 9.9 mg/dL (0.6-1.3)
[2022-11-21] MEDS: BUDESONIDE 0.5 MG/2 ML NEBU INH SCH ×2 (07:01→19:43)
[2022-11-21 07:28] LABS: BASOPHILS # (AUTO) 0.1 K/uL (0.00-0.22); BASOPHILS % (AUTO) 0.5 % (0.0-2.0); EOSINOPHILS % (AUTO) 0.1 % (0.0-4.0); HEMATOCRIT 32.3 % (36-52); HEMOGLOBIN 10.5 g/dL (12.0-18.0); LYMPHOCYTES % (AUTO) 7.4 % (20.5-51.1); MEAN CORPUSCULAR HEMOGLOBIN 27 pg (27-31); MEAN CORPUSCULAR HGB CONC 32 g/dL (33-37); MEAN CORPUSCULAR VOLUME 83.5 fL (80-94); MONOCYTES # (AUTO) 1.7 K/uL (0.8-1.0); MONOCYTES % (AUTO) 13.4 % (1.7-9.3); NEUTROPHILS # (AUTO) 10.1 K/uL (1.8-7.7); NEUTROPHILS % (AUTO) 78.6 % (42.2-75.2); PLATELET COUNT (AUTO) 246 K/uL (140-450); RED BLOOD CELL COUNT(AUTO) 3.87 MIL/uL (4.20-6.10); RED CELL DISTRIBUTION WIDTH 15.2 % (11.6-13.7); WHITE BLOOD COUNT (AUTO) 12.9 K/uL (4.8-10.8)
[2022-11-21] MEDS: PANTOPRAZOLE 40 MG INJ VIAL IVP SCH (08:05)
[2022-11-21] MEDS: DOXYCYCLINE 100 MG in DEXTROSE 5% 100 ML IV SCH ×2 (08:05→20:47)
[2022-11-21] MEDS: ENOXAPARIN 40 MG/0.4 ML SYR SUBQ SCH (08:05)
--- NOTE | 2022-11-21 19:30 | NUR ---
PT ALERT AND ORIENTED X0. VENT SETTINGS ACPC FI02 65% PINSP 20 RATE 28. ACTIVE BOWEL SOUNDS. TUBE FEEDING NEPRO 40ML/HR. BERRIOS CATHETER INTACT WITH MINUM OUTPUT. SWAPNA CATH RIJ. CENTRAL LINE TRIPLE LUMEN. PROP 40 MCG/KG/MIN. FENTANYL 2 MCG/KG/MIN. FLACC 0.
--- NOTE | 2022-11-21 22:30 | NUR ---
PM MEDS GIVEN. AFEBRILE 102.5. PRN TYLENOL ORDER ACTIVE FOR FEVER.
[2022-11-22] VITALS (29 sets, daily range): BP systolic 101–166; BP diastolic 45–66
[2022-11-22] MEDS: PROPOFOL 1000 MG/100 ML PREMIX 100 ML IV PRN ×8 (00:12→23:33)
[2022-11-22] MEDS: fentaNYL citrate - 50mL vial 2.5 MG in NACL 0.9% 200 ML IV PRN ×4 (00:13→23:55)
--- NOTE | 2022-11-22 02:30 | NUR ---
TEMP 102.4 VIA RECTAL TEMP FROM COOLING BLANKET MACHINE.
[2022-11-22] MEDS: ALBUTEROL SULFATE/IPRATROPIU 3 ML SOL IH SCH ×6 (04:46→23:00)
[2022-11-22 05:35] LABS: BASOPHILS % (AUTO) 0.4 % (0.0-2.0); EOSINOPHILS % (AUTO) 0.2 % (0.0-4.0); HEMATOCRIT 30.6 % (36-52); HEMOGLOBIN 10.1 g/dL (12.0-18.0); LYMPHOCYTES # (AUTO) 0.9 K/uL (2.0-11.5); LYMPHOCYTES % (AUTO) 8.2 % (20.5-51.1); MEAN CORPUSCULAR HEMOGLOBIN 27 pg (27-31); MEAN CORPUSCULAR HGB CONC 33 g/dL (33-37); MEAN CORPUSCULAR VOLUME 82.6 fL (80-94); MONOCYTES # (AUTO) 1.2 K/uL (0.8-1.0); MONOCYTES % (AUTO) 11.1 % (1.7-9.3); NEUTROPHILS % (AUTO) 80.1 % (42.2-75.2); PLATELET COUNT (AUTO) 235 K/uL (140-450); RED CELL DISTRIBUTION WIDTH 15.4 % (11.6-13.7); WHITE BLOOD COUNT (AUTO) 11.2 K/uL (4.8-10.8)
[2022-11-22] MEDS: PIPERACILLIN/TAZOBACTAM 2.25 GM in DEXTROSE 5% 50 ML IV SCH ×4 (06:06→23:36)
[2022-11-22] MEDS: BUDESONIDE 0.5 MG/2 ML NEBU INH SCH ×2 (06:38→18:56)
[2022-11-22 06:40] LABS: ANION GAP 24.6 (8-16); CARBON DIOXIDE 22.9 mmol/L (21-32); POTASSIUM 4.5 mmol/L (3.5-5.1)
[2022-11-22 06:41] LABS: CREATININE 9.3 mg/dL (0.6-1.3)
--- NOTE | 2022-11-22 07:15 | NUR ---
RECEIVED PT ON PC 20,RR28,+14,100%. VENT WHEELS ARE LOCKED, PLUGGED INTO RED OUTLET, AMBUBAG AT BEDSIDE, ALARMS ARE SET AND AUDIBLE. SATURATION WAS 93%. BREATH SOUNDS WERE DIMINISHED. EQUAL CHEST RISE AND PT IS RESTING COMFORTABLY.WILL CONTINUE TO MONITOR.
--- NOTE | 2022-11-22 07:36 | NUR ---
REPORT GIVEN TO AM SHIFT RN PEPPI.
--- NOTE | 2022-11-22 08:00 | NUR ---
ABG DONE ON PT. DOCTOR NOTIFIED. FIO2 RAISED TO 100% PER DOCTOR ORDER.
--- NOTE | 2022-11-22 08:00 | NUR ---
RECEIVED PT ORALLY INTUBATED, SEDATED, ON PROPOFOL AND FENTANYL DRUIPS, FEBRILE WITH TEMP 101.9. MORBIDLY OBESE, TOLERATING NGT FEEDING. ASSESSMENT CONTINUED. COOLING MEASURES RENDERED. ASPIRATION PRECAUTION OBSERVED. REPOSITIONED TO SIDE, SUPPORTED WITH PILLOWS. ST. CONT TO MONITOR.
--- NOTE | 2022-11-22 08:20 | NUR ---
PAGED DR. WALLS VIA ANSWERING SERVICE REGARDING ABG RESULT.
--- NOTE | 2022-11-22 08:28 | NUR ---
DR. WALLS CALLED BACK, REPORTED ABG RESULT, ORDERED TOMINCREASE FIO2 TO 100%. RT AWARE, CHANGES DONE.
[2022-11-22] MEDS: DOXYCYCLINE 100 MG in DEXTROSE 5% 100 ML IV SCH ×2 (09:17→20:35)
[2022-11-22] MEDS: PANTOPRAZOLE 40 MG INJ VIAL IVP SCH (09:19)
[2022-11-22] MEDS: ACETAMINOPHEN 325 MG TAB PO PRN (10:00)
--- NOTE | 2022-11-22 11:50 | NUR ---
HD NURSE AT BEDSIDE PREPARING TO DO HD. PT APPEARS COMFORTABLE ON BED. CONT TO MONITOR.
--- NOTE | 2022-11-22 13:20 | NUR ---
PT. NEIGHBOR ISIDRO PUENTE [phone] CALLED HAS TALK TO PATIENT AUNT , AND SHE WILL CALL TO GET INFORM.NIKHIL.
--- NOTE | 2022-11-22 13:30 | NUR ---
PT. AUNT NYLA. BARBER [phone] CALLED AWARE THAT PT. IS VERY CRITICAL WILL TRY TO COM TO SEE PT. AND WILL TRY TO GET INTOUCH WITH PATIENT FATHER WHO LIVE IN [place] [ GIOVANNI HOOK]
--- NOTE | 2022-11-22 15:00 | NUR ---
TALK TO PT COUSIN ALEAH KNOWLES [phone] MAKE SHE TO AWARE THAT PT. IS VERY CRITICAL THE KITNEY IS INJURY AND ON HEMO DIALYSIS AND ALSO BREATHING ON VENTILATOR.
--- NOTE | 2022-11-22 15:15 | NUR ---
HD COMPLETED, 3L REMOVED, PT TOLERATED PROCEDURE WELL. CONT TO MONITOR.
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
--- NOTE | 2022-11-22 16:36 | NUR ---
11/22/22 RD FOLLOW UP COMPLETED PLEASE REFER TO NUTRITION ASSESSMENT UNDER CARE ACTIVITY FOR ESTIMATED NUTRITIONAL NEEDS. 1. CONTINUE NEPRO @ 40 ML/HR, FWF 100 Q4H. 2. RECOMMEND PROSOURCE 1XDAY. - WITH PROSOURCE AND PROPOFOL, PT WILL RECEIVE 960 TOTAL VOLUME, 1788 KCAL, 92 G PROTEIN, AND 1297 ML FREE WATER, MEETING 80% ESTIMATED ENERGY NEEDS AND 100% ESTIMATED PROTEIN NEEDS. 3. STUDENT EYE SPECIALIST WILL MONITOR LAB VALUES. 4. RD TO FOLLOW-UP 3-5 DAYS, MODERATE RISK REVIEWED BY MANUEL ZUNIGA RD
--- NOTE | 2022-11-22 17:00 | NUR ---
PM CARE RENDERED. GOOD PERICARE DONE FOR STOOL INCONTINENCE. TRANSFERRED TO A BIG BOY BED IN ICU 6. HOB UP, REPOSITIONED COMFORTABLY, SUPPORTED WITH PILLOWS. BOTH HEELS OFF LOADED WITH PILLOWS.
--- NOTE | 2022-11-22 17:20 | NUR ---
@1602 INTUBATION WAS ATTEMPTED BY DR ATWOOD. PT WAS BAGGED TO 100%. INTUBATION WAS ATTEMPTED BY DR ATWOOD, DR CARRILLO, AND DR ZUNIGA. DR ZUNIGA ATTEMPTED USING THE BRONCHOSCOPE FOR INTUBATION BUT IT WAS UNSUCCESSFUL. DR ZUNIGA WAS ABLE TO SUCCESSFULLY INTUBATE THE SECOND TRY WITH OR GLIDE SCOPE. PT WAS INTUBATED WITH 7.0 @24 @TEETH. BILATERAL BREATHE SOUNDS, CONDENSATION OF THE ETT, COLOR CHANGE OF EASY CAP, AND XRAY CONFIRMED PROPER PLACEMENT. WILL CONTINUE TO MONITOR.
--- NOTE | 2022-11-22 19:15 | NUR ---
REPORT GIVEN TO INCOMING PM NURSE. GEN CONDITION CRITICAL.
--- NOTE | 2022-11-22 19:30 | NUR ---
ASSUMED ACRE OF PT.INITIAL ASSESSMENT COMPLETED.PT SEDATED.SR NOTED ON MONITOR.ORALLY INTUBATED.AC PC MODE.FIO2 100% RATE 28 PEEP14.W/TLC TO RT IJ INTACT.GOOD BLOOD RETURN TO ALL 3 PORTS INFUSING VERSED DRIP AT 1MG/HR,FENTANYL DRIP AT 2MCG/KG/HR AND PROPOFOL DRIP AT 30MCG/KG/MIN.RASS -3.DRY WT 166KG.W/RT IJ SWAPNA CATHETER W/D/I DRESSING.W/NGT TO LT NARES,PLACEMENT VERIFIED.ON CONTINUOUS NGT FEEDING NEPRO AT 40ML/HR AND WATER FLUSH ORDERED.W/BERRIOS CATHETER TO BSD DRAINING SCANTY AMT OF DARK STACY COLORED URINE.PT W/GENERALIZED WEAKNESS.W/BILATERAL SOFT WRIST RESTRAINTS.NO INJURIES NOTED.FLACC 0/REPOSITIONED.WILL CONTINUE TO CLOSELY MONITOR PT.
--- NOTE | 2022-11-22 21:38 | NUR ---
SEEN AND EXAMINED BY DR GRANT,AIR MOTOR REPAIRER.PER DR GRANT, TO DC WATER FLUSH/FEEDING.STILL NGT FEEDING NEPRO AT 40ML/HR
--- NOTE | 2022-11-22 22:00 | NUR ---
BM NOTED.LARGE AMT OF SOFT TO LIQUID BROWNISH STOOL.CLEANED.REPOSITIONED. NOTED URINE SPEC NOT COLLECTED FOR CULTURE, URINALYSIS AND EOSINOPHIL.NOT ENOUGH URINE FOR SPEC COLLECTION AT THIS TIME, ONLY 3ML NOTED.
[2022-11-23] VITALS (31 sets, daily range): BP systolic 114–152; BP diastolic 52–79
--- NOTE | 2022-11-23 | NUR ---
ORAL CARE USING VAP KIT RENDERED.PT ON PROTONIX FOR GI PROPHYLAXIS AND HEPARIN FOR DVT PROPHYLAXIS.REPOSITIONED .FLACC 0
--- NOTE | 2022-11-23 03:14 | NUR ---
PTS CONDITION REMAINS UNCHANGED.STILL SEDATED RASS -3.TOLERATING FEEDING.AFEBRILE.WILL CONTINUE TO CLOSELY MONITOR PT
[2022-11-23] MEDS: ALBUTEROL SULFATE/IPRATROPIU 3 ML SOL IH SCH ×5 (03:21→20:52)
[2022-11-23 04:49] LABS: BASOPHILS % (AUTO) 0.2 % (0.0-2.0); EOSINOPHILS # (AUTO) 0.1 K/uL (0-0.4); EOSINOPHILS % (AUTO) 0.5 % (0.0-4.0); HEMATOCRIT 29.6 % (36-52); HEMOGLOBIN 9.6 g/dL (12.0-18.0); LYMPHOCYTES # (AUTO) 0.6 K/uL (2.0-11.5); LYMPHOCYTES % (AUTO) 5.7 % (20.5-51.1); MEAN CORPUSCULAR HEMOGLOBIN 27 pg (27-31); MEAN CORPUSCULAR HGB CONC 33 g/dL (33-37); MEAN CORPUSCULAR VOLUME 82.8 fL (80-94); MONOCYTES # (AUTO) 0.9 K/uL (0.8-1.0); MONOCYTES % (AUTO) 7.9 % (1.7-9.3); NEUTROPHILS # (AUTO) 9.4 K/uL (1.8-7.7); NEUTROPHILS % (AUTO) 85.7 % (42.2-75.2); PLATELET COUNT (AUTO) 227 K/uL (140-450); RED BLOOD CELL COUNT(AUTO) 3.57 MIL/uL (4.20-6.10)
[2022-11-23 05:03] LABS: CARBON DIOXIDE 28.4 mmol/L (21-32); POTASSIUM 4.4 mmol/L (3.5-5.1)
--- NOTE | 2022-11-23 05:15 | NUR ---
BM NOTED.LARGE AMT OF LIQUID BROWNISH STOOL.MORNING CARE DONE.ORAL CARE RENDERED.REPOSITIONED.AFEBRILE THIS SHIFT
[2022-11-23 05:17] LABS: MAGNESIUM 2.6 mg/dL (1.8-2.4)
[2022-11-23 06:03] LABS: CREATININE 7.9 mg/dL (0.6-1.3)
[2022-11-23 06:04] LABS: PHOSPHORUS 11.1 mg/dL (2.5-4.9)
[2022-11-23] MEDS: PIPERACILLIN/TAZOBACTAM 2.25 GM in DEXTROSE 5% 50 ML IV SCH ×4 (06:10→23:32)
--- NOTE | 2022-11-23 07:00 | NUR ---
RECEIVED PT PC 20,RR28,+14,100%. VENT WHEELS ARE LOCKED, PLUGGED INTO RED OUTLET, AMBUBAG AT BEDSIDE, ALARMS ARE SET AND AUDIBLE. SATURATION 98%, BREATH SOUNDS DIMINISHED AND MILD CRACKLES IN THE BASE. GOAL: DECREASE FIO2.
--- NOTE | 2022-11-23 07:11 | NUR ---
REPORT GIVEN TO YAMILETH MORRIS FOR CONTINUITY OF CARE.PT STILL ON FIO2 100%/VENT
--- NOTE | 2022-11-23 07:15 | NUR ---
RECEIVED BEDSIDE REPORT FROM SAMPSON FIRE LIEUTENANT MARINE RN, FOR CONTINUITY OF CARE. PT SEDATED, A/OX0. ETT TO VENT ACPC FIO2 100%, R 28, PEEP 14. SR ON MONITOR WITH INVERTED T WAVES. R IJ TRIPLE LUMEN CENTRAL LINE INFUSING FENTANYL AT 2 MCG/KG/HR, VERSED AT 1 MG/HR, PROPOFOL AT 20 MCG/KG/MIN, AND NS TKO. DRY WEIGHT IS 166KG. NGT TO L NARE INFUSING NEPRO TUBE FEEDING AT 40 ML/HR. F/C TO GRAVITY DARK STACY URINE, OLIGURIC. RIRo BARCENAS CATH/ GENERALIZED WEAKNESS. BILATERAL SOFT WRIST RESTRAINTS IN PLACE, NO S/SX OF INJURY. STANDARD PRECAUTION. BED LOCKED AND IN LOWEST POSITION. Addendum: 11/23/22 at 1414 by Leeann Thornton RN R IJ SWAPNA CATHETER IN PLACE.
[2022-11-23] MEDS: BUDESONIDE 0.5 MG/2 ML NEBU INH SCH ×2 (07:19→20:52)
[2022-11-23] MEDS: DOXYCYCLINE 100 MG in DEXTROSE 5% 100 ML IV SCH ×2 (08:05→20:26)
[2022-11-23] MEDS: PANTOPRAZOLE 40 MG INJ VIAL IVP SCH (08:06)
[2022-11-23] MEDS: fentaNYL citrate - 50mL vial 2.5 MG in NACL 0.9% 200 ML IV PRN ×2 (08:33→17:05)
[2022-11-23] MEDS: PROPOFOL 1000 MG/100 ML PREMIX 100 ML IV PRN ×2 (09:34→22:18)
--- NOTE | 2022-11-23 14:15 | NUR ---
DIALYSIS FINISHED, 3L OUTPUT. PT TOLERATED WELL.
--- NOTE | 2022-11-23 14:30 | NUR ---
ABG DONE PER DOCTOR ORDER. WALKED RESULTED TO ALEXANDRA CARSON.
--- NOTE | 2022-11-23 19:05 | NUR ---
ENDORSED BEDSIDE REPORT TO ALEXANDRA BRADEN, FOR CONTINUITY OF CARE.
--- NOTE | 2022-11-23 19:30 | NUR ---
ASSUMED CARE OF PT.INITIAL ASSESSMENT COMPLETED.PT SEDATED.SR NOTED ON MONITOR.ORALLY INTUBATED.AC PC MODE.FIO2 100% RATE 28 PEEP14.W/TLC TO RT IJ INTACT.GOOD BLOOD RETURN TO ALL 3 PORTS INFUSING VERSED DRIP AT 2MG/HR,FENTANYL DRIP AT 2MCG/KG/HR AND PROPOFOL DRIP AT 5 MCG/KG/MIN.RASS -3.DRY WT 166KG.W/RT IJ SWAPNA CATHETER W/D/I DRESSING.W/NGT TO LT NARES,PLACEMENT VERIFIED.ON CONTINUOUS NGT FEEDING NEPRO AT 40ML/HR NO WATER FLUSH ORDERED.PT W/GENERALIZED WEAKNESS.W/BILATERAL SOFT WRIST RESTRAINTS.NO INJURIES NOTED.FLACC 0/REPOSITIONED.WILL CONTINUE TO CLOSELY MONITOR PT.
--- NOTE | 2022-11-23 20:00 | NUR ---
ORAL CARE USING VAP KIT RENDERED.PT ON DAILY PROTONIX FOR GI PROPHYLAXIS AND HEPARIN FOR DVT PROPHYLAXIS.FLACC 0
[2022-11-24] VITALS (31 sets, daily range): BP systolic 113–169; BP diastolic 59–100
--- NOTE | 2022-11-24 | NUR ---
PTS CONDITION REMAINS UNCHANGED.ORAL CARE DONE.NO RESIDUAL/NGT.FLACC 0
[2022-11-24] MEDS: fentaNYL citrate - 50mL vial 2.5 MG in NACL 0.9% 200 ML IV PRN ×3 (00:49→15:59)
--- NOTE | 2022-11-24 03:18 | NUR ---
PT APPEARS RESTING COMFORTABLY.STILL ON FIO2 100% ON VENT.STILL SEDATED.FLACC 0
[2022-11-24] MEDS: PIPERACILLIN/TAZOBACTAM 2.25 GM in DEXTROSE 5% 50 ML IV SCH (05:37)
--- NOTE | 2022-11-24 05:43 | NUR ---
MORNING CARE DONE.ORAL CARE RENDERED.FLACC 0
[2022-11-24 05:53] LABS: BASOPHILS % (AUTO) 0.4 % (0.0-2.0); EOSINOPHILS # (AUTO) 0.2 K/uL (0-0.4); EOSINOPHILS % (AUTO) 1.4 % (0.0-4.0); HEMATOCRIT 30.2 % (36-52); HEMOGLOBIN 9.8 g/dL (12.0-18.0); LYMPHOCYTES # (AUTO) 1.1 K/uL (2.0-11.5); LYMPHOCYTES % (AUTO) 9.6 % (20.5-51.1); MEAN CORPUSCULAR HEMOGLOBIN 27 pg (27-31); MEAN CORPUSCULAR HGB CONC 33 g/dL (33-37); MEAN CORPUSCULAR VOLUME 82.5 fL (80-94); MONOCYTES % (AUTO) 8.6 % (1.7-9.3); NEUTROPHILS # (AUTO) 9.2 K/uL (1.8-7.7); PLATELET COUNT (AUTO) 272 K/uL (140-450); RED BLOOD CELL COUNT(AUTO) 3.66 MIL/uL (4.20-6.10); RED CELL DISTRIBUTION WIDTH 14.7 % (11.6-13.7); WHITE BLOOD COUNT (AUTO) 11.5 K/uL (4.8-10.8)
[2022-11-24 05:54] LABS: ANION GAP 20.3 (8-16); CARBON DIOXIDE 26.4 mmol/L (21-32); POTASSIUM 3.7 mmol/L (3.5-5.1)
[2022-11-24 06:02] LABS: MAGNESIUM 2.4 mg/dL (1.8-2.4); PHOSPHORUS 8.2 mg/dL (2.5-4.9)
[2022-11-24] MEDS: ALBUTEROL SULFATE/IPRATROPIU 3 ML SOL IH SCH ×6 (06:12→23:47)
[2022-11-24] MEDS: BUDESONIDE 0.5 MG/2 ML NEBU INH SCH ×2 (07:18→20:47)
--- NOTE | 2022-11-24 07:20 | NUR ---
RECEIVED PT ON PC 20, RR28, +14, 100%. VENT WHEELS ARE LOCKED, PLUGGED INTO RED OUTLET, AMBUBAG AT BEDSIDE, ALARMS ARE SET AND AUDIBLE. PT RESTING. WILL CONTINUE TO MONITOR.
--- NOTE | 2022-11-24 07:40 | NUR ---
Received pt sedated. ETT to vent settings AC PC rate 28 PEEP 14 FiO@@100%. RT at bedside and decreased FiO2 to 90%. Sinus rhythm on monitor. NG-tube to left nare intact and patent infusing Nepro @40ml/hr with no water flush. Ralf cath on right IJ intact. Central line on right IJ intact and patent infusing NS@TKO, Fentanyl@2mcg/kg/hr, Versed @2mg/hr, and Propofol 5mcg/kg/hr. Safety precautions in place.
--- NOTE | 2022-11-24 07:50 | NUR ---
Seen and examined by Dr. Calero. Reported BUN and creatinine levels and levels trending down.
[2022-11-24] MEDS: DOXYCYCLINE 100 MG in DEXTROSE 5% 100 ML IV SCH ×2 (08:06→20:05)
[2022-11-24] MEDS: PANTOPRAZOLE 40 MG INJ VIAL IVP SCH (08:06)
[2022-11-24] MEDS: ACETAMINOPHEN 325 MG TAB PO PRN ×2 (09:28→20:03)
--- NOTE | 2022-11-24 11:10 | NUR ---
Dr. Tabor at bedside examining patient.
[2022-11-24] MEDS: MIDAZOLAM MDV 100 MG in NACL 0.9% 80 ML IV PRN (14:40)
--- NOTE | 2022-11-24 17:00 | NUR ---
Pt had medium loose BM. Pericare rendered and kept clean and dry. Suctioned secretions.
[2022-11-24] MEDS: PROPOFOL 1000 MG/100 ML PREMIX 100 ML IV PRN (18:04)
--- NOTE | 2022-11-24 19:10 | NUR ---
Seen and examined by Dr. Anderson. Dr. Anderson spoke to [facility] and scheduled dialysis for today. Dialysis will be scheduled tomorrow morning.
--- NOTE | 2022-11-24 19:12 | NUR ---
Endorsed to shift superintendent nurse for continuity of care.
--- NOTE | 2022-11-24 19:30 | NUR ---
RECEIVED PT FROM ALEXANDRA ROBERTS.INITIAL ASSESSMENT COMPLETED.PT SEDATED.SR NOTED ON MONITOR.ORALLY INTUBATED.AC PC MODE.FIO2 90% RATE 28 PEEP14.W/TLC TO RT IJ INTACT.GOOD BLOOD RETURN TO ALL 3 PORTS INFUSING VERSED DRIP AT 2MG/HR,FENTANYL DRIP AT 2MCG/KG/HR AND PROPOFOL DRIP AT 5 MCG/KG/MIN.RASS -3.DRY WT 166KG.W/RT IJ SWAPNA CATHETER W/D/I DRESSING.W/NGT TO LT NARES,PLACEMENT VERIFIED.ON CONTINUOUS NGT FEEDING NEPRO AT 40ML/HR NO WATER FLUSH ORDERED.W/ RECTAL TUBE ALREADY IN PLACE,SCANTY BROWNISH STOOL NOTED,PT W/GENERALIZED WEAKNESS.W/BILATERAL SOFT WRIST RESTRAINTS.NO INJURIES NOTED.FLACC 0/REPOSITIONED.WILL CONTINUE TO CLOSELY MONITOR PT
[2022-11-24] MEDS ORDERED: ALBUTEROL SULFATE/IPRATROPIU 3 ML SOL IH ONE (20:27)
[2022-11-24] MEDS ORDERED: BUDESONIDE 0.5 MG/2 ML NEBU INH ONE (20:27)
--- NOTE | 2022-11-24 21:29 | NUR ---
TEMP RECHECKED 101.4; MESSAGE SENT TO DR REN,ID , NEW ORDERS RECEIVED.LACTIC ACID,CXR,SPUTUM CULTURE AND BLOOD CULTURE, WANTED URINE CULTURE BUT PT ANURIC, HEMODIALYSIS PT, DR REN SAID OK NOT TO GET URINE CULTURE
--- NOTE | 2022-11-24 21:45 | NUR ---
CXR AT BEDSIDE DONE, SPUTUM SPEC FOR SPUTUM CULTURE SENT TO LAB, BLOOD CULTURE AND LACTIC ACID ALSO DRAWN.AWAITING RESULTS.
--- NOTE | 2022-11-24 23:39 | NUR ---
TEMP 100.9, CONTINUOUS COOLING MEASURE RENDERED.WILL CONTINUE TO CLOSELY MONITOR PT Addendum: 11/25/22 at 0029 by Alysia Clark RN TEMP 101.9 NOT 100.9
[2022-11-25] VITALS (31 sets, daily range): BP systolic 118–167; BP diastolic 58–98
[2022-11-25] MEDS: SEVELAMER CARBONATE 800 MG TAB PO SCH ×4 (00:04→21:58)
[2022-11-25] MEDS: fentaNYL citrate - 50mL vial 2.5 MG in NACL 0.9% 200 ML IV PRN ×2 (00:05→21:54)
--- NOTE | 2022-11-25 02:00 | NUR ---
PT STILL FEBRILE, ON COOLING BLANKET.TYLENOL ADMINISTERED ORDERED.WILL CONTINUE TO CLOSELY MONITOR PT
[2022-11-25] MEDS: ACETAMINOPHEN 325 MG TAB PO PRN (02:06)
[2022-11-25] MEDS: ALBUTEROL SULFATE/IPRATROPIU 3 ML SOL IH SCH ×5 (03:46→23:12)
--- NOTE | 2022-11-25 05:15 | NUR ---
MORNING CARE DONE.LINENS CHANGED.CONTINUOUS COOLING BLANKET FOR FEVER.STILL SEDATED.ORALLY INTUBATED.FLACC 0
--- NOTE | 2022-11-25 05:22 | NUR ---
PHONE CALL TO X RAY RE;STAT CXR SINCE LAST NIGHT, NO RESULT UNTIL THIS TIME, MODELING DIRECTOR WAS TOLD THAT THE STAT X RAY WILL BE DONE RIGHT AWAY BY THE LOPPER BUT NOT READ "STAT" UNLESS NURSES TELL THEM IT NEEDS TO BE READ STAT.INFORMED LOPPER THAT I INFORMED THE PERSON WHO TOOK THE XRAY THAT IT NEEDS TO BE READ "STAT".STILL AWAITING RESULT.
[2022-11-25 06:03] LABS: ANION GAP 24.6 (8-16); CARBON DIOXIDE 22.7 mmol/L (21-32); POTASSIUM 4.3 mmol/L (3.5-5.1)
[2022-11-25 06:07] LABS: BASOPHILS # (AUTO) 0.1 K/uL (0.00-0.22); BASOPHILS % (AUTO) 0.4 % (0.0-2.0); EOSINOPHILS # (AUTO) 0.1 K/uL (0-0.4); EOSINOPHILS % (AUTO) 0.5 % (0.0-4.0); HEMATOCRIT 31.1 % (36-52); LYMPHOCYTES # (AUTO) 1.2 K/uL (2.0-11.5); LYMPHOCYTES % (AUTO) 7.2 % (20.5-51.1); MEAN CORPUSCULAR HEMOGLOBIN 27 pg (27-31); MEAN CORPUSCULAR HGB CONC 32 g/dL (33-37); MEAN CORPUSCULAR VOLUME 83.1 fL (80-94); MONOCYTES # (AUTO) 1.2 K/uL (0.8-1.0); MONOCYTES % (AUTO) 7.2 % (1.7-9.3); NEUTROPHILS # (AUTO) 13.8 K/uL (1.8-7.7); NEUTROPHILS % (AUTO) 84.7 % (42.2-75.2); PLATELET COUNT (AUTO) 340 K/uL (140-450); RED BLOOD CELL COUNT(AUTO) 3.74 MIL/uL (4.20-6.10); RED CELL DISTRIBUTION WIDTH 14.8 % (11.6-13.7); WHITE BLOOD COUNT (AUTO) 16.3 K/uL (4.8-10.8)
--- NOTE | 2022-11-25 06:22 | NUR ---
TEMP 102.3, ON COOLING BLANKET.ETT TO VENT FIO2 INCREASED TO 100%.DESATURATING TO 85%.FLACC 0
[2022-11-25 06:39] LABS: MAGNESIUM 2.5 mg/dL (1.8-2.4); PHOSPHORUS 7.5 mg/dL (2.5-4.9)
--- NOTE | 2022-11-25 07:30 | NUR ---
RECEIVED PT IN BED, GCS 3. INTUBATED TUBE SIZE 7.0/23LIP. PRESSURE CONTROL 20 R28 PEEP14 FIO2 100% SATURATION 93% BREATHING APPEARS AGONAL. PT ON VERSED 3MG/HR FENTANYL 2MCG/KG/HR, PROP 5MCG/KG/MIN. RIGHT IJ TRIPLE LUMEN INFUSING WELL. OG TUBE WITH NEPRO AT 40ML/HR TOLERATING WELL WITHOUT ANY RESIDUAL NOTED. RECTAL TUBE WITH SMALL OUTPUT. ANURIC. PENDING DIALYSIS TODAY. HOB ELEVATED FOR ASPIRATION PRECAUTIONS. SAFETY MAINTAINED.
[2022-11-25] MEDS: BUDESONIDE 0.5 MG/2 ML NEBU INH SCH ×2 (07:41→19:38)
--- NOTE | 2022-11-25 08:30 | NUR ---
PT FEBRILE 102.6 COOLING MEASURES CONTINUED MEDICATED WITH TYLENOL VIA NGTUBE PER ORDER
[2022-11-25] MEDS: PANTOPRAZOLE 40 MG INJ VIAL IVP SCH (09:31)
[2022-11-25] MEDS: DOXYCYCLINE 100 MG in DEXTROSE 5% 100 ML IV SCH ×2 (09:31→21:51)
--- NOTE | 2022-11-25 10:15 | NUR ---
DR CARRILLO AT BEDSIDE
--- NOTE | 2022-11-25 10:16 | NUR ---
DR FIGUEROA AT [facility]. Addendum: 11/25/22 at 1341 by Agency 02 RN RN wrong pt
--- NOTE | 2022-11-25 11:20 | NUR ---
NOTIFIED DR REN REGARDING ELEVATED WBC AND FEVER WITHOUT RELIEF OF TYLENOL. PENDING FURTHER ORDERS.
--- NOTE | 2022-11-25 11:21 | NUR ---
NOTIFIED DR REN REGARDING ELEVATED WBC AND FEVER WITHOUT RELIEF OF TYLENOL. PENDING FURTHER ORDERS. Addendum: 11/25/22 at 1340 by Agency Cherrie MORRIS RN wrong patient
--- NOTE | 2022-11-25 13:40 | NUR ---
dr murdock at [facility] Addendum: 11/25/22 at 1341 by Agency Cherrie RN RN wrong pt
--- NOTE | 2022-11-25 17:00 | NUR ---
PT REMAINS FEBRILE 101.9 MEDICATED WITH TYLENOL COOLING MEASURES CONTINUED.
--- NOTE | 2022-11-25 18:28 | NUR ---
SPOKE TO DIALYSIS NURSE STATES PT WILL BE NEXT FOR DIALYSIS. PT REMAINS FEBRILE BUT TEMPERATURE TRENDING DOWN. STACH ON MONITOR. TOLERATING VENT SETTINGS. SAFETY MAINTAINED
[2022-11-25] MEDS: MIDAZOLAM MDV 100 MG in NACL 0.9% 80 ML IV PRN (21:50)
[2022-11-25] MEDS: PROPOFOL 1000 MG/100 ML PREMIX 100 ML IV PRN (21:56)
[2022-11-26] VITALS (31 sets, daily range): BP systolic 117–172; BP diastolic 57–125
[2022-11-26] MEDS: ACETAMINOPHEN 325 MG TAB PO PRN ×3 (01:35→15:24)
[2022-11-26] MEDS: SEVELAMER CARBONATE 800 MG TAB PO SCH ×4 (01:35→18:42)
[2022-11-26] MEDS: ALBUTEROL SULFATE/IPRATROPIU 3 ML SOL IH SCH ×4 (02:29→14:07)
--- NOTE | 2022-11-26 02:47 | NUR ---
0229 PATIENT DESATED TO 87-88%. GAVE PATIENT BREATHING TX. INCREASED FIO2 TO 100%. ADVANCED TUBE TO 25 LIP. SATS IMPROVED TO 92%. WILL KEEP PATIENT ON 100%
[2022-11-26 05:46] LABS: BASOPHILS # (AUTO) 0.1 K/uL (0.00-0.22); BASOPHILS % (AUTO) 0.3 % (0.0-2.0); EOSINOPHILS # (AUTO) 0.1 K/uL (0-0.4); EOSINOPHILS % (AUTO) 0.5 % (0.0-4.0); HEMATOCRIT 30.9 % (36-52); HEMOGLOBIN 9.9 g/dL (12.0-18.0); LYMPHOCYTES % (AUTO) 4.4 % (20.5-51.1); MEAN CORPUSCULAR HEMOGLOBIN 27 pg (27-31); MEAN CORPUSCULAR HGB CONC 32 g/dL (33-37); MEAN CORPUSCULAR VOLUME 82.9 fL (80-94); MONOCYTES # (AUTO) 1.3 K/uL (0.8-1.0); MONOCYTES % (AUTO) 5.5 % (1.7-9.3); NEUTROPHILS # (AUTO) 20.9 K/uL (1.8-7.7); NEUTROPHILS % (AUTO) 89.3 % (42.2-75.2); PLATELET COUNT (AUTO) 392 K/uL (140-450); RED BLOOD CELL COUNT(AUTO) 3.73 MIL/uL (4.20-6.10); RED CELL DISTRIBUTION WIDTH 14.8 % (11.6-13.7); WHITE BLOOD COUNT (AUTO) 23.5 K/uL (4.8-10.8)
[2022-11-26 06:18] LABS: ANION GAP 24.3 (8-16); CARBON DIOXIDE 21.1 mmol/L (21-32); POTASSIUM 4.4 mmol/L (3.5-5.1)
[2022-11-26 06:26] LABS: MAGNESIUM 2.5 mg/dL (1.8-2.4); PHOSPHORUS 7.1 mg/dL (2.5-4.9)
[2022-11-26 06:45] LABS: CREATININE 8.6 mg/dL (0.6-1.3)
--- NOTE | 2022-11-26 07:16 | NUR ---
RECEIVED BEDSIDE REPORT FROM CAR INSTALLATIONS SUPERVISOR SHOE CASER, RAKEL, FOR CONTINUITY OF CARE. A/OX0, SEDATED, NO EYE OPENING. REMAINS FEBRILE. ETT TO VENT, ACPC FIO2 100%/RR 28/PEEP 14. ST ON MONITOR. TLC TO R IJ INFUSING PROPOFOL AT 10 MCG/KG/MIN, VERSED AT 7 MG/HR, FENTANYL AT 2 MCG/KG/HR, AND NS TKO. NGT TO L NARE INFUSING VITAL TUBE FEEDING AT 40 ML/HR WITHOUT FWF. HD CATHETER TO R IJ. BOWEL SOUNDS HYPOACTIVE. GENERALIZED WEAKNESS. STANDARD PRECAUTION. COOLING MEASURES IN USE, CONTINUOUS RECTAL TEMP MONITORING AND COOLING BLANKET. BED LOCKED AND IN LOWEST POSITION. BILATERAL SOFT WRIST RESTRAINTS IN PLACE, NO S/SX OF INJURY.
[2022-11-26] MEDS: BUDESONIDE 0.5 MG/2 ML NEBU INH SCH (07:28)
[2022-11-26] MEDS: PANTOPRAZOLE 40 MG INJ VIAL IVP SCH (08:03)
[2022-11-26] MEDS: DOXYCYCLINE 100 MG in DEXTROSE 5% 100 ML IV SCH (08:04)
[2022-11-26] MEDS: fentaNYL citrate - 50mL vial 2.5 MG in NACL 0.9% 200 ML IV PRN ×2 (08:30→19:26)
--- NOTE | 2022-11-26 08:31 | NUR ---
ABG RESULTS GIVEN TO NO CHANGES AT THIS TIME. WILL CONTINUE TO MONITOR.
[2022-11-26] MEDS: PROPOFOL 1000 MG/100 ML PREMIX 100 ML IV PRN ×2 (09:50→18:42)
[2022-11-26] MEDS: MEROPENEM 500 MG in NACL 0.9% 50 ML IV SCH ×2 (09:56→20:21)
[2022-11-26] MEDS ORDERED: ALTEPLASE 100 MG VIAL IV ONE (13:50)
[2022-11-26] MEDS ORDERED: ALTEPLASE 2 MG VIAL MC SCH (14:00)
--- NOTE | 2022-11-26 15:14 | NUR ---
11/26/22 RD FOLLOW UP COMPLETED PLEASE REFER TO NUTRITION ASSESSMENT UNDER CARE ACTIVITY FOR ESTIMATED NUTRITIONAL NEEDS. 1. RECOMMEND INCREASING TF GOAL RATE TO 45 ML/HR TO BETTER HELP MEET PATIENT NUTRIENT NEEDS TOLERATED. - NEPRO @ 45 ML/HR PROVIDES 1080 ML TOTAL VOLUME, 1944 KCAL, 87 GM PROTEIN, AND 785 ML FREE WATER DAILY, MEETING 89% ESTIMATED KCAL NEEDS AND 100% ESTIMATED PROTEIN NEEDS; ADEQUATE 2. MONITOR WEIGHT CHANGES, GASTRIC RESIDUALS AND NUTRITION-RELATED LAB VALUES 3. RD TO FOLLOW-UP 3-5 DAYS, MODERATE RISK REVIEWED BY MANUEL ZUNIGA RD
[2022-11-26] MEDS: MIDAZOLAM MDV 100 MG in NACL 0.9% 80 ML IV PRN (18:20)
--- NOTE | 2022-11-26 18:38 | NUR ---
CHANGED TUBE FEEDING BAG AND TUBING TO GOAL RATE OF 55ML/HR FWF 150 Q6H PER DIETARY RECOMMENDATION. Addendum: 11/26/22 at 1919 by Leeann Thornton RN WRONG PT
--- NOTE | 2022-11-26 19:13 | NUR ---
PT WITH ORDER FOR CT ABDOMEN W/O CONTRAST BY DR REN,ID. MESSAGED DR REN THAT PT WON'T FIT IN THE CT MACHINE; MAX WT FOR MACHINE 400LBS, PT [address] REN MESSAGED BACK THAT CT ANGIO WAS DONE WITH THE PT AND THAT PT WILL FIT ON THE MACHINE.NOTIFIED THAT PT WAS 366LBS ON 11/[address] ANGIO WAS DONE. SAID TO TRY.
--- NOTE | 2022-11-26 19:18 | NUR ---
ENDORSED BEDSIDE REPORT TO ALEXANDRA BRADEN FOR CONTINUITY OF CARE.
--- NOTE | 2022-11-26 19:30 | NUR ---
RECEIVED PT FROM YAMILETH MORRIS.INITIAL ASSESSMENT COMPLETED.PT SEDATED.ST NOTED ON MONITOR.ORALLY INTUBATED.AC PC MODE.FIO2 100% RATE 28 PEEP14.W/TLC TO RT IJ INTACT.GOOD BLOOD RETURN TO ALL 3 PORTS INFUSING VERSED DRIP AT 3MG/HR,FENTANYL DRIP AT 1.2MCG/KG/HR AND PROPOFOL DRIP AT 10 MCG/KG/MIN.RASS -3.DRY WT 166KG.W/RT IJ SWAPNA CATHETER W/D/I DRESSING.W/NGT TO LT NARES,PLACEMENT VERIFIED.ON CONTINUOUS NGT FEEDING NEPRO AT 45ML/HR NO WATER FLUSH ORDERED.PT W/GENERALIZED WEAKNESS.W/BILATERAL SOFT WRIST RESTRAINTS.NO INJURIES NOTED.FLACC 0/REPOSITIONED.WILL CONTINUE TO CLOSELY MONITOR PT
[2022-11-26] MEDS: LINEZOLID 600MG PREMIX 300 ML IV SCH (20:20)
[2022-11-26] MEDS ORDERED: MEROPENEM 500 MG in NACL 0.9% 100 ML IV SCH (21:00)
--- NOTE | 2022-11-26 21:00 | NUR ---
ALL DUE MEDS GIVEN.ORAL CARE USING VAP KIT RENDERED.PT ON DAILY PROTONIX FOR GI PROPHYLAXIS AND HEPARIN FOR DVT PROPHYLAXIS.ON BARIATRIC TURNING BED. PT FOR CT ABDOMEN W/O CONTRAST, COORDINATED WITH RT AND BOARD CERTIFIED ARTS THERAPIST.WILL BRING PT TO CT
--- NOTE | 2022-11-26 23:21 | NUR ---
2240 JIG MAKER, 2 RTS AND 3 RNS AT BEDSIDE.PT TRANSFERRED TO NORMAL ICU BED SINCE BARIATRIC BED WON'T FIT THE ICU DOOR.THEN PT TAKEN TO CT , MONITORS ATTACHED, ON VENT FIO2 100%.WHILE IN CT, PTS SATURATION CONTINUES TO GO DOWN TO 70'S, BAGGED BY RT.WHEN PTS HOB WAS PUT DOWN TO TRANSFER PT TO CT BED, PT TURNED BLUE AND DESATING TO 60'S, PT WAS NOT ABLE TO TOLERATE THAT'S WHY CT OF ABDOMEN WAS NOT DONE. 2320 PT CAME BACK TO ICU, MONITORS ATTACHED.ON VENT FIO2 100%.STILL DESATING
[2022-11-27] VITALS (30 sets, daily range): BP systolic 88–170; BP diastolic 41–109
--- NOTE | 2022-11-27 | NUR ---
ORAL CARE DONE,SUCTIONED.FLACC 0
[2022-11-27] MEDS: SEVELAMER CARBONATE 800 MG TAB PO SCH ×4 (00:44→17:11)
--- NOTE | 2022-11-27 01:31 | NUR ---
PT STILL DESATING; 02SAT 81% AT THIS TIME ON A 10% FIO2.PT STILL SEDATED.AGONAL BREATHING NOTED.
--- NOTE | 2022-11-27 02:15 | NUR ---
PAGED DR. WALLS BECAUSE PATIENT IS GASPING FOR BREATH AND DESATURATING TO 75% AT 100% FIO2.
--- NOTE | 2022-11-27 02:22 | NUR ---
PHONE CALL MADE TO DR CARABALLO, INFORMED DR CARABALLO THAT WE ARE STILL AWAITING DR WALLS, PULMO BRICK MOLDER HAND, TO CALL US BACK, PT DESATING, RT AT BEDSIDE AND INCREASE THE PEEP TO 18 AND SEDATION (FENTANYL AND PROPOFOL) INCREASED DUE TO RR 30'S.NEW ORDER FOR STAT CXR, BANQUET HOUSEPERSON AWARE AND STAT ABG.
--- NOTE | 2022-11-27 02:25 | NUR ---
SPOKE TO DR TITI PRITCHETT. VERIFIED PATIENTS VENT SETTINGS PC //100% AND SATURATION OF 77-80%. MD AWARE CHEST X-RAY AND ABG WAS ORDERED. NO NEW ORDER WAS RECEIVED.
--- NOTE | 2022-11-27 02:35 | NUR ---
STAT CXR DONE.
[2022-11-27] MEDS: ACETAMINOPHEN 325 MG TAB PO PRN ×4 (02:39→22:10)
--- NOTE | 2022-11-27 02:39 | NUR ---
PTS TEMP 101.0 ; TYLENOL ADMIN ORDERED.PT ON CONTINUOS COOLING BLANKET.WILL CONTINUE TO CLOSELY MONITOR PT
--- NOTE | 2022-11-27 03:00 | NUR ---
SPOKE TO DR TITI PRITCHETT. REGARDING PATIENTS ABG RESULTS, NO NEW ORDERS AT THIS MOMENT AND NO CHANGES TO VENT SETTINGS. PEEP STILL AT 18 AND FIO2 100%.
--- NOTE | 2022-11-27 04:00 | NUR ---
PT STILL FEBRILE; ON CONTINUOUS COOLING BLANKET.ORAL CARE DONE.FLACC 0
[2022-11-27 06:03] LABS: BASOPHILS % (AUTO) 0.2 % (0.0-2.0); EOSINOPHILS # (AUTO) 0.1 K/uL (0-0.4); EOSINOPHILS % (AUTO) 0.2 % (0.0-4.0); HEMATOCRIT 33.6 % (36-52); HEMOGLOBIN 10.6 g/dL (12.0-18.0); LYMPHOCYTES # (AUTO) 0.6 K/uL (2.0-11.5); MEAN CORPUSCULAR HEMOGLOBIN 27 pg (27-31); MEAN CORPUSCULAR HGB CONC 32 g/dL (33-37); MEAN CORPUSCULAR VOLUME 83.8 fL (80-94); MONOCYTES # (AUTO) 1.4 K/uL (0.8-1.0); MONOCYTES % (AUTO) 4.6 % (1.7-9.3); NEUTROPHILS # (AUTO) 27.9 K/uL (1.8-7.7); PLATELET COUNT (AUTO) 499 K/uL (140-450); RED BLOOD CELL COUNT(AUTO) 4.01 MIL/uL (4.20-6.10); RED CELL DISTRIBUTION WIDTH 14.9 % (11.6-13.7)
[2022-11-27 06:27] LABS: ANION GAP 26.2 (8-16); CARBON DIOXIDE 19.4 mmol/L (21-32); POTASSIUM 5.6 mmol/L (3.5-5.1)
--- NOTE | 2022-11-27 06:38 | NUR ---
PT STILL SEDATED ON PROPOFOL, VERSED AND FENTANYL DRIPS, STILL ON 100% FIO2/ETT TO VENT.STILL TACHYPNEIC; FEEDING ON HOLD FOR NOW.WILL CONTINUE TO CLOSELY MONITOR PT.FLACC 0
[2022-11-27 06:45] LABS: MAGNESIUM 2.6 mg/dL (1.8-2.4)
[2022-11-27 07:04] LABS: CREATININE 8.9 mg/dL (0.6-1.3); PHOSPHORUS 9.2 mg/dL (2.5-4.9)
--- NOTE | 2022-11-27 07:20 | NUR ---
RECEIVED BEDSIDE REPORT FROM WASHHOUSE HAND RNSAMPSON, FOR CONTINUITY OF CARE. A/OX0, SEDATED. ETT TO VENT, ACPC FIO2 100%/RR 28/PEEP 17. ST ON MONITOR. TLC TO R IJ INFUSING PROPOFOL AT 20 MCG/KG/MIN, VERSED AT 5 MG/HR, FENTANYL AT 2 MCG/KG/HR, AND NS TKO. NGT TO L NARE INFUSING VITAL TUBE FEEDING AT 45 ML/HR WITHOUT FWF. HD CATHETER TO R IJ. GENERALIZED WEAKNESS. STANDARD PRECAUTION. REMAINS FEBRILE. COOLING MEASURES IN USE, CONTINUOUS RECTAL TEMP MONITORING AND COOLING BLANKET. BED LOCKED AND IN LOWEST POSITION. BILATERAL SOFT WRIST RESTRAINTS IN PLACE, NO S/SX OF INJURY. Addendum: 11/28/22 at 1035 by Leeann Thornton RN RESTRAINTS NOT ON PT, WRONG PT
[2022-11-27] MEDS: BUDESONIDE 0.5 MG/2 ML NEBU INH SCH (07:36)
[2022-11-27] MEDS: ALBUTEROL SULFATE/IPRATROPIU 3 ML SOL IH SCH ×3 (07:36→20:48)
[2022-11-27] MEDS: LINEZOLID 600MG PREMIX 300 ML IV SCH ×2 (08:03→21:34)
[2022-11-27] MEDS: PANTOPRAZOLE 40 MG INJ VIAL IVP SCH (08:03)
[2022-11-27] MEDS: fentaNYL citrate - 50mL vial 2.5 MG in NACL 0.9% 200 ML IV PRN ×3 (08:09→23:58)
[2022-11-27] MEDS: PROPOFOL 1000 MG/100 ML PREMIX 100 ML IV PRN ×5 (08:18→23:46)
--- NOTE | 2022-11-27 08:30 | NUR ---
SEEN AND EXAMINED BY DR. CARRILLO. ADVISED TO KEEP PT HEAVILY SEDATED AND TO NOT MOVE PT TOO MUCH D/T RISK OF DESATURATION. NO NEW ORDERS.
--- NOTE | 2022-11-27 08:55 | NUR ---
SEEN AND EXAMINED BY DR. CARABALLO. NO NEW ORDERS.
--- NOTE | 2022-11-27 09:30 | NUR ---
SEEN AND EXAMINED BY Myra CRANE. SIGNED CONSENT FOR HD CATH REPLACEMENT. ORDERS RECEIVED.
[2022-11-27] MEDS: MEROPENEM 500 MG in NACL 0.9% 50 ML IV SCH ×2 (09:55→21:34)
[2022-11-27] MEDS ORDERED: SODIUM ZIRCONIUM CYCLOSILICATE 10 GM POWD.PACK PO SCH (10:00)
--- NOTE | 2022-11-27 11:02 | NUR ---
PROSPECTING DRILLER AT BEDSIDE
[2022-11-27] MEDS: ALUMINUM HYDROXIDE 64 MG/ML BOTTLE PO SCH ×3 (13:00→21:34)
--- NOTE | 2022-11-27 14:15 | NUR ---
SPOKE TO PRIMARY ALEXANDRA BOWDEN WITH UPDATE INFORMATION. PT. SWITCH TO REGULAR BED DUE TO CT PROCEDURE, HOWEVER, PT. WAS DE SAT PRIOR CT AND RETURN BACK TO ICU. PT. V.S REMAINS UN-STABLE: LOW BP, LOW O2 SAT AND HEART RATE ELEVATED. UNABLE TO TRANSFER PT. BACK TO BARIATRIC BED AT THIS TIME WILL CONTINUE TO MONITOR. PT. SKIN IS INTACT AT THIS TIME PER PRIMARY ALEXANDRA BOWDEN.
[2022-11-27] MEDS: MIDAZOLAM MDV 100 MG in NACL 0.9% 80 ML IV PRN (14:31)
--- NOTE | 2022-11-27 15:00 | NUR ---
DIALYSIS NURSE AT BEDSIDE.
--- NOTE | 2022-11-27 17:45 | NUR ---
DIALYSIS FINISHED, 2L OUTPUT. PT TOLERATED.
--- NOTE | 2022-11-27 18:41 | NUR ---
DR. VEE AT BEDSIDE. NOTIFIED OF HD CATHETER STATUS. CALLED Myra CRANE WHO ADVISED TO KEEP CURRENT HD CATH SINCE DIALYSIS WAS ABLE TO BE DONE TODAY. PHYSICIAN TO SEE PATIENT IN THE MORNING.
--- NOTE | 2022-11-27 19:28 | NUR ---
ENDORSED BEDSIDE REPORT TO [facility] OUTDOOR EMERGENCY CARE TECHNICIAN TERRAZZO LAYER, FOR CONTINUITY OF CARE.
[2022-11-27] MEDS ORDERED: NOREPINEPHRINE 4 MG/4 ML VIAL IV ONE (23:49)
[2022-11-27] MEDS: NOREPINEPHRINE 16 MG in DEXTROSE 5% 250 ML IV PRN (23:51)
[2022-11-28] VITALS (32 sets, daily range): BP systolic 81–119; BP diastolic 40–78
[2022-11-28] MEDS: ALBUTEROL SULFATE/IPRATROPIU 3 ML SOL IH SCH ×7 (00:30→23:50)
[2022-11-28] MEDS: fentaNYL citrate - 50mL vial 2.5 MG in NACL 0.9% 200 ML IV PRN ×3 (00:35→23:51)
[2022-11-28] MEDS: SEVELAMER CARBONATE 800 MG TAB PO SCH ×5 (00:40→23:39)
[2022-11-28] MEDS: ALUMINUM HYDROXIDE 64 MG/ML BOTTLE PO SCH ×7 (00:41→23:38)
[2022-11-28] MEDS: BUDESONIDE 0.5 MG/2 ML NEBU INH SCH ×3 (00:43→20:05)
[2022-11-28] MEDS: ACETAMINOPHEN 325 MG TAB PO PRN ×2 (03:14→10:48)
[2022-11-28] MEDS: PROPOFOL 1000 MG/100 ML PREMIX 100 ML IV PRN ×5 (03:32→21:35)
--- NOTE | 2022-11-28 07:15 | NUR ---
RECEIVED PT ON PC 18, RR28,+17,100%. VENT WHEELS ARE LOCKED AND PLUGGED INTO RED OUTLET,VENT ALARMS ARE SET AND AUDIBLE. AMBUBAG AT BEDSIDE. WILL CONTINUE TO MONITOR
--- NOTE | 2022-11-28 07:30 | NUR ---
RECEIVED REPORT FROM ALEXANDRA PIÑA FOR CONTINUITY OF CARE. PATIENT IN BED, TOLERATING VENT WELL. ON COOLING BLANKET, PATIENT CONTINUES TO BE AFEBRILE. FEEDING CONTINUING WITH NGT 50ML/HR.
--- NOTE | 2022-11-28 07:30 | NUR ---
PT CLEANED, TURNED, AND REPOSITIONED. DESATURATED TO LOW 80'S. RT PRESENT. SMALL TEARS ON TESTICLES NOTED WITH SLOW TRICKLING OF BLOOD OUTPUT. APPLIED PRESSURE AND COVERED WITH TOWEL. REPOSITIONED, O2 SATURATION SLOWLY INCREASED.
[2022-11-28 08:57] LABS: HEMATOCRIT 30.3 % (36-52); HEMOGLOBIN 9.6 g/dL (12.0-18.0); MEAN CORPUSCULAR HEMOGLOBIN 27 pg (27-31); MEAN CORPUSCULAR HGB CONC 32 g/dL (33-37); MEAN CORPUSCULAR VOLUME 84.4 fL (80-94); PLATELET COUNT (AUTO) 536 K/uL (140-450); RED BLOOD CELL COUNT(AUTO) 3.59 MIL/uL (4.20-6.10); WHITE BLOOD COUNT (AUTO) 24.4 K/uL (4.8-10.8)
[2022-11-28] MEDS: PANTOPRAZOLE 40 MG INJ VIAL IVP SCH (09:00)
[2022-11-28] MEDS: MEROPENEM 500 MG in NACL 0.9% 50 ML IV SCH ×2 (09:00→21:04)
[2022-11-28 09:01] LABS: ANION GAP 18.6 (8-16); CARBON DIOXIDE 25.4 mmol/L (21-32)
[2022-11-28 09:03] LABS: CREATININE 9.2 mg/dL (0.6-1.3)
[2022-11-28] MEDS: LINEZOLID 600MG PREMIX 300 ML IV SCH ×2 (09:30→20:44)
--- NOTE | 2022-11-28 09:55 | NUR ---
ABG DRAWN ON PT. PER DR HUDSON ORDERS. PRESSURE WAS CHANGED TO 22. WILL CONTINUE TO MONITOR. CURRENT VENT SETTING ARE PC 22, RR28, +18, 100% FIO2.
[2022-11-28] MEDS: MICAFUNGIN SODIUM 100 MG in NACL 0.9% 100 ML IV SCH (10:00)
[2022-11-28] MEDS: IBUPROFEN 600 MG TAB PO PRN ×3 (10:49→16:06)
[2022-11-28] MEDS: MIDAZOLAM MDV 100 MG in NACL 0.9% 80 ML IV PRN (14:17)
--- NOTE | 2022-11-28 14:49 | NUR ---
PT FOUND WITH ESTIMATED 150-200 ML BLOOD LOSS FROM SMALL TEARS ON TESTICLES. MONICA STEWART. CALLED DR. PERALTA TO NOTIFY. ORDERED TO STOP BLOOD THINNERS, APPLY PRESSURE, AND NOTIFY DR. VEE.
--- NOTE | 2022-11-28 15:15 | NUR ---
TESTICULAR BLEEDING HAS STOPPED.
--- NOTE | 2022-11-28 15:23 | NUR ---
NOTIFIED DR. VEE. NO NEW ORDERS.
[2022-11-28 15:52] LABS: LYMPHOCYTES % (MANUAL) 6 % (20-46); MONOCYTES % (MANUAL) 8 % (5-12)
--- NOTE | 2022-11-28 16:10 | NUR ---
DR. VEE ROUNDING AT BEDSIDE. NO NEW ORDERS.
[2022-11-28 17:13] LABS: BASOPHILS # (AUTO) 0.1 K/uL (0.00-0.22); BASOPHILS % (AUTO) 0.5 % (0.0-2.0); EOSINOPHILS # (AUTO) 0.1 K/uL (0-0.4); EOSINOPHILS % (AUTO) 0.3 % (0.0-4.0); HEMATOCRIT 31.6 % (36-52); LYMPHOCYTES # (AUTO) 1.5 K/uL (2.0-11.5); LYMPHOCYTES % (AUTO) 6.5 % (20.5-51.1); MEAN CORPUSCULAR HEMOGLOBIN 27 pg (27-31); MEAN CORPUSCULAR HGB CONC 32 g/dL (33-37); MEAN CORPUSCULAR VOLUME 84.8 fL (80-94); MONOCYTES % (AUTO) 8.7 % (1.7-9.3); NEUTROPHILS # (AUTO) 19.4 K/uL (1.8-7.7); PLATELET COUNT (AUTO) 548 K/uL (140-450); RED BLOOD CELL COUNT(AUTO) 3.73 MIL/uL (4.20-6.10); RED CELL DISTRIBUTION WIDTH 14.8 % (11.6-13.7); WHITE BLOOD COUNT (AUTO) 23.2 K/uL (4.8-10.8)
[2022-11-28 17:54] LABS: FIBRINOGEN 500 mg/dL (200-400); PROTHROMBIN TIME 10.4 secs (10.8-13.4)
--- NOTE | 2022-11-28 18:59 | NUR ---
PATIENT CONTINUING TO BE FEBRILE, OFIRMEV ORDERED BY DR. PERALTA
[2022-11-28] MEDS ORDERED: ACETAMINOPHEN 100 ML IV PRN (19:00)
[2022-11-28 19:25] LABS: D-DIMER > 5000 ng/ml (0-400)
--- NOTE | 2022-11-28 20:00 | NUR ---
RECEIVED PATIENT SEDATED ON PROFOPOL AT 20 MCG,VERSED AT 5MG,AND FENTANYL AT 1MCG ALSO LEVOPHED AT AT 11 MCG.vENT SETTING NO CHANGES.SUCTIONING RENERED EVERY 2 HOURS AND PRN.NEPRO TUBE FEEDING CONTINUES AT SAME RATE .AND TOLERATED WELL.STILL ON COOLING BLANKET TO DECREASE TEMPERATURE.WILL PROCEED WITH PRESENT PLAN OF CARE.
--- NOTE | 2022-11-28 20:06 | NUR ---
RECEIVED REPORT FROM AM SHIFT. PATIENT WAS SEEN AND ASSESSED. PATIENT IS INTUBATED WITH ETT SIZE 7.0 AND SECURED WITH A BITING BLOCK ANCHOR-FAST 23cm @ TEETH. PATIENT IS ON VENTILATOR SUPPORT. VENTILATOR PLUGGED IN RED OUTLET. VENTILATOR ALARMS SET APPROPRIATELY AND AUDIBLE TO ENVIRONMENT. AMBU BAG AT BEDSIDE. HEAD OF BED GREATER THAN 30 DEGREES. NOTICED ADEQUATE BILATERAL CHEST RISE AND FALL. PATIENT IS IN NO RESPIRATORY DISTRESS AT THIS TIME. VENT SETTINGS: AC/PC PRESSURE SET 22, RR 30, PEEP 18, FiO2 100% WITH SPO2 OF 90%. BILATERAL BREATH SOUNDS ON AUSCULTATION;UPPER LOBES: DIMINISHED, LOWER LOBES DIMINISHED. SUCTIONED SMALL AMOUNT OF WHITE THICK SECRETIONS FROM ETT. HHN SCHEDULE TX GIVEN ORDERED AND PT TOLERATED WELL WITH NO ADVERSE REACTION. WILL CONTINUE TO MONITOR PT.
--- NOTE | 2022-11-28 21:21 | NUR ---
OFIRMEV ADMINISTERED EARLIER, ONE TIME DOSE PER DR PERALTA, MEDICATION DC'D PER FABI RIVERA
--- NOTE | 2022-11-28 21:36 | NUR ---
PHONE CALL FROM DR REN, ID, READ BACK ULTRASOUND OF ABDOMEN COMPLETE, NEW ORDER TO GIVE FLAGYL 500MG IV Q 8HRS, PHYSICIAN SAID PHARMACY WILL CALL AND TO TELL PHARMACIST IT'S HIS ORDER.RADHA AWARE
--- NOTE | 2022-11-28 23:05 | NUR ---
PHONE CALL FROM MAYANK ,DIALYSIS NURSE, SHE SAID SHE CALLED DR Piedad BELTRÁN, HIRED HELP AND SHE WILL DO DIALYSIS IN AM PER DR BELTRÁN
[2022-11-29] VITALS (24 sets, daily range): BP systolic 69–148; BP diastolic 43–78
[2022-11-29] MEDS: PROPOFOL 1000 MG/100 ML PREMIX 100 ML IV PRN ×3 (00:29→10:20)
[2022-11-29] MEDS: ACETAMINOPHEN 325 MG TAB PO PRN ×3 (01:07→14:45)
[2022-11-29] MEDS: ALBUTEROL SULFATE/IPRATROPIU 3 ML SOL IH SCH ×5 (03:55→18:57)
[2022-11-29] MEDS: metroNIDAZOLE 500 MG/NS PREMIX 100 ML IV SCH ×2 (04:36→13:04)
[2022-11-29] MEDS: ALUMINUM HYDROXIDE 64 MG/ML BOTTLE PO SCH ×4 (04:36→16:27)
[2022-11-29] MEDS: SEVELAMER CARBONATE 800 MG TAB PO SCH ×3 (05:43→17:50)
[2022-11-29 05:50] LABS: BASOPHILS # (AUTO) 0.1 K/uL (0.00-0.22); BASOPHILS % (AUTO) 0.2 % (0.0-2.0); EOSINOPHILS # (AUTO) 0.1 K/uL (0-0.4); EOSINOPHILS % (AUTO) 0.4 % (0.0-4.0); HEMATOCRIT 29.2 % (36-52); HEMOGLOBIN 9.2 g/dL (12.0-18.0); LYMPHOCYTES # (AUTO) 2.1 K/uL (2.0-11.5); MEAN CORPUSCULAR HEMOGLOBIN 27 pg (27-31); MEAN CORPUSCULAR HGB CONC 32 g/dL (33-37); MEAN CORPUSCULAR VOLUME 84.9 fL (80-94); MONOCYTES # (AUTO) 1.3 K/uL (0.8-1.0); MONOCYTES % (AUTO) 5.7 % (1.7-9.3); NEUTROPHILS # (AUTO) 20.2 K/uL (1.8-7.7); NEUTROPHILS % (AUTO) 84.7 % (42.2-75.2); PLATELET COUNT (AUTO) 523 K/uL (140-450); RED BLOOD CELL COUNT(AUTO) 3.45 MIL/uL (4.20-6.10); RED CELL DISTRIBUTION WIDTH 14.9 % (11.6-13.7); WHITE BLOOD COUNT (AUTO) 23.8 K/uL (4.8-10.8)
--- NOTE | 2022-11-29 06:00 | NUR ---
PATIENT AFTER BATHE DESATURAED TO 87%.PATIENT ALREADY 100% FI02 WILL ENDORSE TO INCOMING VALERIE SHIFT ALEXANDRA -CARLEEN AND TO PROCEED WITH PRESENT CARE PLAN.
[2022-11-29 06:31] LABS: ANION GAP 23.3 (8-16); CARBON DIOXIDE 22.5 mmol/L (21-32)
[2022-11-29 06:37] LABS: CREATININE 10.4 mg/dL (0.6-1.3); POTASSIUM 6.8 mmol/L (3.5-5.1)
--- NOTE | 2022-11-29 07:15 | NUR ---
RECEIVED PT ON PC 22,RR28, +18, 100%. SATURATION FLUCTUATED IN THE 80'S. BREATH SOUNDS DIMINISHED. VENT PLUGGED INTO RED OUTLET, WHEELS LOCKED, AMBUBAG AT BEDSIDE , ALARMS ARE SET AND AUDIBLE. REPEAT ABG SCHEDULED FOR TODAY. WILL CONTINUE TO MONITOR.
[2022-11-29] MEDS ORDERED: CALCIUM GLUC 1 GM/50 mL NS BAG 50 ML IV ONE (07:25)
[2022-11-29] MEDS ORDERED: CALCIUM GLUCONATE 10% 1,000 MG in NACL 0.9% 50 ML IV ONE (07:30)
--- NOTE | 2022-11-29 07:30 | NUR ---
Received report on pt. Pt intubated and sedated with diprivan, fentanyl, and versed drips. No obvious signs of pain noted. Pt also on levohped drip. On cooling measures with cooling blanket, rectal temp 102.2. NGT in place with tube feeding.
--- NOTE | 2022-11-29 07:30 | NUR ---
Pt also noted with desaturation SpO2 86% on FiO2 100%, hypotensive with levophed drip. Pt unstable to transfer to designated special bed. Pt also unstable to turn at this time.
[2022-11-29] MEDS ORDERED: CALCIUM GLUC 1 GM/50 mL NS BAG 50 ML IV SCH (07:37)
[2022-11-29] MEDS ORDERED: INSULIN REGULAR, HUMAN 100 UNIT/ML VIAL IVP SCH (07:39)
[2022-11-29] MEDS ORDERED: DEXTROSE 50% 50 ML SYR IVP SCH (07:40)
--- NOTE | 2022-11-29 07:50 | NUR ---
Dr. Maier and Dr. Gaxiola rounding on pt.
--- NOTE | 2022-11-29 08:06 | NUR ---
Dialysis being done at bedside by co pilot.
[2022-11-29] MEDS: LINEZOLID 600MG PREMIX 300 ML IV SCH (08:09)
[2022-11-29] MEDS: PANTOPRAZOLE 40 MG INJ VIAL IVP SCH (08:10)
[2022-11-29] MEDS: BUDESONIDE 0.5 MG/2 ML NEBU INH SCH ×2 (08:18→18:58)
[2022-11-29] MEDS ORDERED: ALBUMIN HUMAN 25% 100 ML IV ONE ×2 (08:19→08:20)
[2022-11-29] MEDS: MEROPENEM 500 MG in NACL 0.9% 50 ML IV SCH (09:05)
[2022-11-29] MEDS: MICAFUNGIN SODIUM 100 MG in NACL 0.9% 100 ML IV SCH (10:00)
--- NOTE | 2022-11-29 11:06 | NUR ---
Dialysis complete, 3L out, pt tolerated well.
[2022-11-29] MEDS: MIDAZOLAM MDV 100 MG in NACL 0.9% 80 ML IV PRN (11:57)
[2022-11-29] MEDS: fentaNYL citrate - 50mL vial 2.5 MG in NACL 0.9% 200 ML IV PRN (11:58)
--- NOTE | 2022-11-29 13:00 | NUR ---
ABG results reported to Dr. Maier, no new orders made.
[2022-11-29] MEDS ORDERED: MIDAZOLAM MDV 50 MG in NACL 0.9% 40 ML IV PRN (15:50)
--- NOTE | 2022-11-29 16:00 | NUR ---
Dr. Maier notified regarding pt's current condition HR 136, rectal T 105.5, and on levophed and neosynephrine drips. No new orders made.
[2022-11-29] MEDS: IBUPROFEN 600 MG TAB PO PRN (17:50)
--- NOTE | 2022-11-29 19:07 | NUR ---
Endorsed plan of care to Michelle MORRIS. Pt remains unstable with multiple drips. Temp 104.9 with cooling measures and PRN medications.
--- NOTE | 2022-11-29 19:30 | NUR ---
RECEIVED PATIENT IN SEEMINGLY NOT LOOKING GOOD GRAYISH DISCOLORATION OF ALL EXTREMITIES WAS NOTED,MORE PRONOUNCED ON THE FACE.WITH HR 130'S AND TEMPERATURE OF 105.7.STILL SEDATED ON PROPOFOL AT 15MCG,VERSED 5MG,AND FENTANYL1.5 MCG.aLSO ON LEVOPHED AT 30MCG AND AND NEOSYNEPHRINE DRIP AT 150MCG.WITH VITAL SIGNS FOLLOWS 1916 85/39,1931 70/32,1946 39/18,1958 84/52 .2002 127/103,2009 89/44 2018 34/14 AND NO MORE BP APPRECIATED ONWARD. O2 SAT HAD BEEN ON THE 84-.1958 PATIENT NOTED WITH NO PULSE AND CODE BLUE INITIATED.CODE BLUE PROTOCOL ENSUED.PATENT WAS REVIVED AND WHEN AMIODARONE BOLUS OF 150 MG STARTED AT 2018 THE SECOND CODE BLUE WAS CALLED IN AND CODE BLUE TEAM AT BEDSIDE AGAIN AND PROTOCOL FOLLOWED AGAIN UNTIL THE CODE BLUE WAS CALLED OFF ,UNABLE TO REVIVED HIM DESPITE ALL THE EFFORT .AT AROUND 2031.AT .1950 THIS GRAB OPERATOR CALLED THE FAMILY MEMBERS,THE DAD AND AUNT RESPECTIVELYBUT HIS DAD'S NUMBER WAS SAYING THE VOICEMAIL HAS NOT BEEN SET UP YET, THE AUNT ,THIS GRAB OPERATOR JUST MANAGED TO LEAVE MESSAGES A COUPLE OF TIMES.BUT TO NO AVAIL.NO ONE BETWEEN THEM RESPONDED TO THE CALL UNTIL ANOTHER NURSE WERE ABLE TO GET IN TOUCH AND I ALSO FOLOOWED UP THE CALL AND INFORMED HIM OF HIS SON PASSING.WHICH HE STATED HE DIDNT KNOW WHAT TO DO AND WOULD LIKE INFORMATION ON HOW HE WILL PROCEED.SO HIS CALL WAS PASSED ONTO THE CHARGE NURSE.
[2022-11-29] MEDS ORDERED: PHENYLEPHRINE 10 MG/ML VIAL ONE (19:40)
[2022-11-29] MEDS ORDERED: AMIODARONE 150 MG in DEXTROSE 5% 100 ML IV ONE (20:20)
--- NOTE | 2022-11-29 20:25 | NUR ---
PHONE CALL TO NYLA SIEGEL AFTER TRYING TO CONTACT PTS DAD GIOVANNI, NO ANSWER,LEFT MESSAGE TO CALL [facility] ICU PHONE NUMBER GIVEN
--- NOTE | 2022-11-29 20:27 | NUR ---
PHONE CALL TO PTS DAD GIOVANNI ([phone]), UPDATED ON PTS PRESENT CONDITION.DR ENRIQUE, ER DOCTOR SPOKE WITH GIOVANNI
--- NOTE | 2022-11-29 20:43 | NUR ---
SPOKE TO PATIENT'S FATHER NAME GIOVANNI AND INFORMED HIM THAT HIS SON AT 2031 AFTER RESUSCITATING HIM AGAIN FOR THE 2ND TIME. PER PATIENT'S FATHER, THEY DON'T HAVE ANY MORTUARY SO I RECOMMENDED HIM THIS [facility]'S CONTRACTED MORTUARY, [employer] [facility] AND I GAVE THE CONTACT NUMBER OF THE HOMES.
--- NOTE | 2022-11-30 03:25 | NUR ---
SPOKE TO SOMEONE FROM CORONERS OFFICE,HER NAME IS VINCENT HOLLOWAY,TATING THAT SHE CAN ONLY GIVE HER NAME WITH NO REFERENCE NUMBER.WILL CALL MAYBE 3 HOURS LATER.CHARGE NURSE MADE AWARE OF THIS INFORMATION.
--- NOTE | 2022-11-30 08:00 | NUR ---
THE BODY TOOK TO THE COOLER BY SECURITY , HOUSE SUPP PAT TAGER AWARE.
== END 2022-11-30 09:02 | DRG 720 ==
LOC: MED 09:58 → MTU 13:19 → MIC 13:19
PROVIDERS: ADMIT Family Medicine; ATTEND Family Medicine
PROC: 5A1955Z Respiratory Ventilation, Greater than 96 Consecutive Hours (ICD-10-PCS; principal; 2022-11-17)
PROC: 0BH17EZ Insertion of Endotracheal Airway into Trachea, Via Natural or Artificial Opening (ICD-10-PCS; 2022-11-17)
PROC: 02HV33Z Insertion of Infusion Device into Superior Vena Cava, Percutaneous Approach (ICD-10-PCS; 2022-11-17)
PROC: 0DH67UZ Insertion of Feeding Device into Stomach, Via Natural or Artificial Opening (ICD-10-PCS; 2022-11-17)
PROC: 3E0G76Z Introduction of Nutritional Substance into Upper GI, Via Natural or Artificial Opening (ICD-10-PCS; 2022-11-17)
PROC: 5A1D70Z Performance of Urinary Filtration, Intermittent, Less than 6 Hours Per Day (ICD-10-PCS; 2022-11-20)
PROC: 0T9B70Z Drainage of Bladder with Drainage Device, Via Natural or Artificial Opening (ICD-10-PCS; 2022-11-20)
PROC: 5A1D70Z Performance of Urinary Filtration, Intermittent, Less than 6 Hours Per Day (ICD-10-PCS; 2022-11-21)
PROC: 5A1D70Z Performance of Urinary Filtration, Intermittent, Less than 6 Hours Per Day (ICD-10-PCS; 2022-11-22)
PROC: 5A1D70Z Performance of Urinary Filtration, Intermittent, Less than 6 Hours Per Day (ICD-10-PCS; 2022-11-25)
PROC: 5A1D70Z Performance of Urinary Filtration, Intermittent, Less than 6 Hours Per Day (ICD-10-PCS; 2022-11-26)
PROC: 5A1D70Z Performance of Urinary Filtration, Intermittent, Less than 6 Hours Per Day (ICD-10-PCS; 2022-11-27)
PROC: 5A1D70Z Performance of Urinary Filtration, Intermittent, Less than 6 Hours Per Day (ICD-10-PCS; 2022-11-28)
PROC: 5A12012 Performance of Cardiac Output, Single, Manual (ICD-10-PCS; 2022-11-29)
PROC: 5A1D70Z Performance of Urinary Filtration, Intermittent, Less than 6 Hours Per Day (ICD-10-PCS; 2022-11-29)
PROC: 5A1D70Z Performance of Urinary Filtration, Intermittent, Less than 6 Hours Per Day (ICD-10-PCS; 2022-11-30)
DX: A41.9 Sepsis, unspecified organism (principal); N17.0 Acute kidney failure with tubular necrosis; J96.21 Acute and chronic respiratory failure with hypoxia; R65.21 Severe sepsis with septic shock; E44.0 Moderate protein-calorie malnutrition; D63.8 Anemia in other chronic diseases classified elsewhere; E83.51 Hypocalcemia; J18.9 Pneumonia, unspecified organism; D68.59 Other primary thrombophilia; E66.01 Morbid (severe) obesity due to excess calories; I46.9 Cardiac arrest, cause unspecified; E87.1 Hypo-osmolality and hyponatremia; E87.8 Other disorders of electrolyte and fluid balance, not elsewhere classified; E87.5 Hyperkalemia; Z20.822 Contact with and (suspected) exposure to COVID-19; Z68.43 Body mass index [BMI] 50.0-59.9, adult
CPT/HCPCS: 36415; 36600; 71045; 71275; 76700; 76770; 80048; 80053; 80202; 82803; 82948; 83605; 83735; 83880; 84100; 84484; 85025; 85379; 85384; 85610; 85730; 86704; 86706; 87040; 87070; 87081; 87086; 87205; 87340; 89220; 92950; 93005; 94002; 94003; 94640; 96365; 96367; 96375; 99291; C9113; J0282; J0330; J0456; J0610; J0696; J1644; J1650; J1815; J2020; J2060; J2185; J2248; J2250; J2370; J2405; J2543; J2704; J2930; J2997; J3010; J3370; J3490; J7030; J7060; J7626; P9046; Q0092; Q9967